=== PATIENT | female | born 1960 | race Caucasian/White ===

== ENCOUNTER 2018-10-19 17:19 | Emergency (ER) | payer BC ==
--- OUTSIDE RECORDS SUMMARY | 2018-10-19 17:24 | XMS REPORT | Continuity of Care Document ---
:1960 External Reference #:[id number] Author Name Betty Corona, RN [employer] Address [address] [place] [address] Care Team Providers Name Role Phone Kate Avlarez MD Care Team Information Payroll Professional Unavailable Payers Date Identification Numbers Payment Provider Subscriber Effective: 2016 Policy Number: [id number] [employer] Ppo David De La Vega Group Number: [id number] [address] [address] PayID: [id number] [place] [address] Onset: 10/14/2014 Policy Number: [id number] [facility] pre 08/26 Ngozi De La Vega Group Number: FAX [phone] [address] [address] PayID: [place] [address] PayID: [id number] WC/ Controverted Ngozi De La Vega Advance Directives Description No Information Available Problems Active Problems Provider Date Benign essential hypertension Onset: 10/07/2008 Pure hypercholesterolemia Onset: 10/07/2008 Generalized anxiety disorder Evette Hughes MD Onset: 09/30/2012 Low back pain Evette Hughes MD Onset: 10/02/2012 Family History Date Family Member(s) Observation Comments Father Good Health Father due to AAA () Onset: (age 74 Years) Father Aneurysm, Abdominal Mother Hypertension Mother Osteoporosis Mother Glaucoma Number of Siblings Siblings: 4 3 sisters and 1 brother Order Patient is the third of five children First Sister Thyroid Disease Second Sister Hypertension Paternal Grandfather due to Heart Disease () Paternal Grandmother due to Stroke () Maternal Grandfather due to Stroke () Maternal Grandmother due to Unsure Of () Cod-But Had Rheumtoid Athritis At A Young Age Social History Type Date Description Comments Sex Unknown Marital Status Marital Status 3 Children Pets several dogs Pets Cows Occupation Homemaker Occupation [employer] Tobacco Use Start: Unknown Current Cigarette Smoker 1 Pack Daily ETOH Use Rarely consumes liquor ETOH Use Maybe Once Every 6 Month A Mixed Drink Or Wine Cooler Recreational Drug Use Denies Drug Use Tobacco Use Start: Unknown Patient is a current smoker, smokes every day Smoking Status Reviewed: 09/12/18 Patient is a current smoker, smokes every day Exercise Type/Frequency Physical Life Style Tattoo/Piercing Pierced ears Seat Belt/Car Seat always uses seat belt Guns in Home Yes, Locked Up Allergies, Adverse Reactions, Alerts Description No Known Drug Allergies Medications Active Medications SIG Qnty Indications Ordering Date Provider Sulfamethoxazole/Trim one tab by mouth 14tabs J20.9 Betty Corona 2018 ethoprim DS twice a day for 7 C RN [employer] 800-160mg days Tablets Rosuvastatin Calcium 1 by mouth every 30tabs E78.2 Betty Corona 2017 day C RN [employer] 5mg Tablets Lotrisone apply to Feet 45gm B35.3 Betty Corona 01/16/2018 1-0.05% Cream twice a day C RN [employer] Meloxicam 1 by mouth twice a 60tabs G24.3 Betty Corona 12/24/2017 7.5mg Tablets day for 2-3weeks Nehemiah RN [employer] then as needed Meclizine HCL take 1- 2 tabs at 30tabs R42 Betty Corona 08/29/2017 25mg night if needed C RN [employer] Tablets for vertigo till sx are gone.(may take 1/2 in am if needed) Tizanidine HCL 1-2 tabs every 8 30tabs M54.5 Betty Corona 06/26/2017 2mg hours as needed C RN [employer] Tablets muscle cramps Nasal Decongestant 1-2 tabs every 4 24tabs J06.9 Betty Corona 2017 30mg hours as needed C RN [employer] Tablets for nasal congestion Proair HFA 2 p three times a 25.5gm J06.9 Betty Corona 05/11/2017 108(90Base) day as needed C RN [employer] mcg/Act Aerosol Sertraline HCL Take 1 Tablet By 90tabs F41.1 Betty Corona 01/25/2017 50mg Mouth Every Day BERONICA Cerna [employer] Tablets F33.0 Alprazolam take one tablet by 90tabs F41.0 Betty Corona, 10/16/2016 0.5mg Tablets mouth three times a RN [employer] day as needed for anxiety, maximum daily dose=3 F41.1 Atenolol-Chlorthalidone take 1/2 tablet 45tabs I10 Betty Corona 2013 50-25mg Tablets by mouth once BERONICA Cerna [employer] daily History Medications Amoxicillin/Clavulanate 1 by mouth every 14tabs J01.90 Antonio, 2018 - Potassium 12 hours Kate Huizar MD 08/20/2018 875-125mg Tablets Fluticasone Propionate 1 sprays in each 48gm J01.90 Antonio, 08/13/2018 - 50mcg/Act nostril twice Kate Huizar MD 08/23/2018 Suspension daily Atorvastatin Calcium 1 by mouth every 30tabs Cj, 03/13/2018 - 10mg Tablets day Betty Cerna RN 04/26/2018 [employer] Azithromycin 2 tabs day one 6tabs R05 Cj, 03/13/2018 - 250mg Tablets and 1 tab daily Betty Cerna RN 04/26/2018 till gone [employer] Cheratussin ac 5-10 milliliters 118ml R05 Cj, 03/13/2018 - 100-10mg/5ML Solution at bedtime, september Betty Cerna RN 04/26/2018 repeat x 1 after [employer] 4 hours if still needed Rosuvastatin Calcium 1 by mouth every 30tabs Cj, 01/30/2018 - 5mg Tablets day Betty Cerna RN 03/13/2018 [employer] Bupropion HCL One Tab bid 60tabs F33.0 Cj, 06/22/2017 - 75mg Tablets Betty Cerna RN 09/12/2018 [employer] Azithromycin ,2 tabs day one 6tabs J06.9 Cj, 05/11/2017 - 250mg Tablets and 1 tab daily Betty Cerna RN 06/22/2017 till gone [employer] Doxycycline Monohydrate 1 by mouth twice 42tabs Antonio, 03/12/2017 - 100mg Tablets a day x 21 d Kate Huizar MD 04/26/2017 Doxycycline Hyclate 2 tabs x one 2tabs Cj, 02/28/2017 - 100mg Tablets DR dose , september sub Betty Cerna RN 03/12/2017 any doxy that is [employer] covered Sertraline HCL 1 Tab AT hs 30tabs F41.1 Cj, 11/01/2016 - 25mg Tablets Betty Cerna RN 04/24/2017 [employer] Clonazepam One Tab bid 60tabs F41.1 Cj, 11/01/2016 - 0.5mg Tablets Betty Cerna RN 04/26/2017 [employer] Azithromycin 2 tabs day one 6tabs Antonio, 10/27/2016 - 250mg Tablets and 1 tab daily Kate Huizar MD 11/30/2016 till gone Ventolin HFA 2 puffs every 4 16gm J10.89 Antonio, 10/19/2016 - 108(90Base) mcg/Act hours as needed Kate Huizar MD 11/30/2016 Aerosol for shortness of breath Mucinex 1 tab per oral 30tabs J10.89 Antonio, 10/19/2016 - 600mg Tablets ER 12HR twice a day Kate Huizar MD 11/30/2016 Doxycycline Hyclate 1 by mouth twice 20tabs J01.00 Antonio, 10/16/2016 - 100mg Tablets a day x 10 d Kate Huizar MD 10/27/2016 Buspirone HCL take 1/2-1 60tabs Cj, 08/22/2016 - 10mg Tablets tablet by mouth Betty Cerna RN 04/26/2017 twice a day [employer] Lotrisone apply to Feet 45gm B35.3 Cj, 04/14/2016 - 1-0.05% Cream twice a day Betty Cerna RN 07/13/2016 [employer] Tramadol HCL take 1tablet by 20tabs M54.2 Cj, 12/10/2015 - 50mg Tablets mouth every 6 Betty Cerna RN 03/01/2016 hours with food [employer] as needed for pain, mdd 4 Hydroxyzine HCL take one to 60tabs F41.1 Cj, 06/30/2015 - 10mg Tablets three tablets by Betty Cerna RN 11/01/2016 mouth every 6 [employer] hours as needed for anxiety may take up to 5 tablets by mouth at bedtime for sleep F41.9 Tizanidine HCL 1-2 tabs every 8 30tabs M54.5 Betty Corona 06/30/2015 - 2mg hours as needed BERONICA Cerna [facility] 04/24/2017 Tablets muscle cramps Cervical Collar to use for M54.2 Betty Corona 06/30/2015 - severe neck pain BERONICA Cerna [facility] 08/27/2015 X 1-2 hrs only Sertraline HCL 1/2 tab daily 45tabs F41.1 Betty Corona 04/08/2015 - 100mg BERONICA Cerna [facility] 01/25/2017 Tablets F33.0 Zoloft one tab at 30tabs [place], 03/25/2015 - 50mg Tablets bedtime. brand Betty Cerna RN 06/30/2015 name medically [employer] necessary( gi sx with generic) Viibryd One Daily In Am F33.0 Cj, 03/19/2015 - 10mg Tablets Betty Cerna RN 04/08/2015 [employer] Meclizine HCL take 1- 2 tabs at 30tabs H81.311 Cj, 03/03/2015 - 25mg night if needed Betty Cerna RN 11/30/2016 Tablets for vertigo till [employer] sx are gone. Cheratussin ac 1-2 teaspoon at 120units J20.9 Cj, 03/03/2015 - bedtime, september Betty Cerna RN 04/08/2015 100-10mg/5ML Solution repeat x 1 after 4 [employer] hours if still needed Azithromycin 2 tabs day one and 6tabs J20.9 Cj, 03/03/2015 - 250mg 1 tab daily till Betty Cerna RN 04/08/2015 Tablets gone [employer] Out Of Work For out of work till F41.9 [place], 02/19/2015 - Medical Reasons further notice. We Betty Cerna RN 08/27/2015 will continue to [employer] see monthly and she is seeing conselor weekly. Sertraline HCL 1/2 tab Daily( 30tabs F41.9 Cj, 02/03/2015 - 50mg With 1/2 Of 100MG) Betty Cerna RN 06/30/2015 Tablets [employer] Citalopram 1/2 by mouth every 90tabs 300.00 Cj 01/21/2015 - Hydrobromide day Betty Cerna RN 02/03/2015 20mg Tablets [employer] Out Of Work For 300.00 Cj 01/21/2015 - Medical Reasons Betty Cerna RN 02/19/2015 [employer] Return To Work may return to full 786.50 Cj 12/18/2014 - duty on 12/24/14 Betty Cerna RN 01/21/2015 [employer] Celebrex 1 by mouth every 90caps 726.31 Cj 12/18/2014 - 200mg Capsules day Betty Cerna RN 01/21/2015 [employer] Prozac one tab daily by 30caps 300.00 Cj 11/24/2014 - 10mg Capsules mouth for anxiety Betty Cerna RN 12/18/2014 [employer] Out Of Work For One 786.50 Cj 11/18/2014 - Month Betty Cerna RN 12/18/2014 [employer] Gabapentin take 1 capsules by 90caps 786.50 Cj 11/18/2014 - 100mg Capsules mouth at bedtime, Betty Cerna RN 12/18/2014 may increase [employer] every3- 4 days up to 3 tabs at bedtime. Hydrocodone-Acetaminop 1 tab by mouth 30tabs Cj 11/12/2014 - hen every 6 hours if Betty Cerna RN 01/21/2015 5-325mg Tablets needed pain [employer] Out Of Work For 2 786.50 Cj 10/28/2014 - Weeks. Betty Cerna RN 11/18/2014 [employer] No Work For One Week due to rib injury. 786.50 Cj 10/21/2014 - may return 10/29 Betty Cerna RN 10/28/2014 with limited [employer] lifting and bending for one week. Lidoderm apply patch daily 1Box 786.50 Cj 10/21/2014 - 5% Patches as directed.leave Betty Cerna RN 12/18/2014 on for 12 [employer] hours/day only. may cut to fit tender area. Tramadol HCL take 1 tablets 20tabs 786.50 Cj, 10/21/2014 - 50mg Tablets every 4-6 hours Betty Cerna RN 10/28/2014 as needed for [employer] pain. Amoxicillin 1 by mouth three 30tabs 466.0 Cj, 09/30/2014 - 500mg Tablets times a day Betty Cerna RN 10/21/2014 [employer] Anoro Ellipta one inhalation 1units J20.9 Cj, 09/30/2014 - once daily Betty Cerna RN 08/27/2015 62.5-25mcg/Inh Aerosol [employer] Ventolin HFA 2 puffs three 1units J20.9 Cj, 09/30/2014 - 108(90Base) times a day as Betty Cerna RN 07/13/2016 mcg/Act Aerosol needed [employer] Azithromycin 2 tabs day one and 6tabs 465.9 Cj, 09/09/2014 - 250mg 1 tab daily till Betty Cerna RN 09/30/2014 Tablets gone [employer] Cephalexin 1 three times a 21tabs Cj 08/20/2014 - 500mg Tablets day for 7 days Betty Cerna RN 09/09/2014 [employer] Elocon apply twice a day 1units 782.1 Cj, 08/19/2014 - 0.1% Cream as needed Betty Cerna RN 07/13/2016 [employer] Robitussin ac 10 milliliters 120ml 466.0 [facility], 06/02/2014 - four times a day Kate Huizar MD 08/19/2014 as needed Azithromycin 2 tabs day one and 1Pack 466.0 [facility], 06/02/2014 - 250mg 1 tab daily till Kate Huizar MD 08/19/[address] Work Note pl excuse from 466.0 Cj, 06/02/2014 - work for the rest Betty Cerna RN 09/16/2014 of week. [employer] Gabapentin take 1 capsules by 90caps 724.2 Cj, 04/15/2014 - 100mg Capsules mouth at bedtime, Betty Cerna RN 08/19/2014 may increase [employer] every7 days up to 3 tabs at bedtime. Meloxicam take 1 tablet by 30tabs 724.2 Cj 04/15/2014 - 7.5mg Tablets mouth every day Betty Cerna RN 11/18/2014 for pain [employer] Prozac one tab daily by 30caps 300.00 Cj, 04/15/2014 - 10mg Capsules mouth for anxiety Betty Cerna RN 11/18/2014 [employer] Cyclobenzaprine HCL 1 every night at 90tabs 724.2 Cj, 11/06/2013 - 10mg bedtime and 1/2 Betty Cerna RN 06/30/2015 Tablets tab every 8 hours [employer] as needed muscle spasm. Celebrex 1 po qd with food Samples 846.8 Jona, 10/16/2012 - 200mg Capsules MD Jelani 03/24/2013 724.2 Work Note Patient with 724.2 Jona, 10/16/2012 - continued low back MD Jelani 03/24/2013 pain. Continue excuse from work long termuntil evaluated by pain specialist Celebrex PO bid 30caps 846.8 Evette Hughes 09/30/2012 - 100mg Capsules 10/16/2012 Prozac one po qd 90caps 300.00 Jona, 05/31/2012 - 20mg Capsules MD Jelani 04/15/2014 Prozac 1 po qd x 1 week, 60caps 300.00 Betty Corona 01/31/2012 - 10mg Capsules then 2 po qd BERONICA Cerna [employer] 05/31/2012 Meclizine HCL 1/2 -1 po tid prn 20tabs 388.70 [facility], 01/10/2012 - 25mg dizziness, vertigo. MD Jelani 03/24/2013 Tablets take 1 po every night before sleep Prozac 1 po qd x 1 week, 60caps 300.00 Jona, 01/10/2012 - 10mg Capsules then 2 po qd MD Jelani 01/31/2012 Augmentin 1 po q12h with food 20tabs Jona, 12/25/2011 - 875-125mg MD Jelani 01/10/2012 Tablets Acetaminophen/Codeine 1-2 po qid prn pain 40tabs [facility], 12/25/2011 - #3 MD Jelani 01/10/2012 300-30mg Tablets Cyclobenzaprine HCL 1 qhs 30tabs 723.1 [facility], 09/22/2011 - 10mg MD Jelani 01/10/2012 Tablets Physical Therapy dx: back pain 724.5 Jona, 09/22/2011 - evaluate and MD Jelani 11/06/2011 rx biw-tiw to include rom and strengthening Augmentin 1 po q12h with food 20tabs 461.8 Jona, 03/06/2011 - 875-125mg MD Jelani 06/16/2011 Tablets Paroxetine HCL ER 1 po qhs 30tabs 300.00 Jona, 09/28/2010 - 25mg MD Jelani 12/21/2010 Tablets ER 24HR Citalopram 1 po qd 30tabs 300.00 Jona, 06/08/2010 - Hydrobromide MD Jelani 09/28/2010 20mg Tablets [facility]ith[facility] 2 tabs day one and 6tabs [facility] 1 tab daily till Kate Huizar MD 06/08/2010 Tablets gone Ventolin HFA use tid as needed 1units 465.9 Betty Corona 04/28/2010 - 108(90Base) C, RN [facility] 06/08/2010 mcg/ac Aerosol Lorazepam 1/2-1 po tid prn 60tabs 327.01 Jona, 04/01/2010 - 0.5mg Tablets nerves or sleep MD Jelani 06/08/2010 Prednisone 4 tabs for3 days,3 30tabs 782.1 Betty Corona 01/10/2010 - 10mg Tablets tabs for 3 days, 2 C, RN [facility] 04/01/2010 tabs for 3 days 1 tab for 3 days Sertraline HCL 1/2 po qd x 1 week 30tabs 724.1 Jona, 10/27/2009 - 50mg then 1 po qd MD Jelani 01/10/2010 Tablets Xanax 1/2-1 three times a 90tabs F41.0 Betty Corona 10/27/2009 - 0.5mg Tablets day as needed C RN [facility] 10/16/2016 anxiety Lidoderm Apply topically qd 15unit 724.1 [facility], 10/08/2009 - 5% Patches as directed (on in s MD Jelani 01/10/2010 am and off at hs) Cymbalta 1 po qd [facility] - 60mg Caps DR Jelani MD 10/27/2009 Part Chantix Continuing 1 po bid 60tabs Jona, 08/06/2009 - Month Fernando Palomares MD 01/10/2010 1mg Tablets Chantix Starter Pack As directed 1units Jona, 08/06/2009 - MD Jelani 01/10/2010 #1Pack Wellbutrin SR 1 po bid 60tabs 305.1 Jona, 08/02/2009 - 150mg MD Jelani 01/10/2010 Tablets ER 12HR No Work all this week september 780.79 Betty Corona 03/10/2009 - D/T Illness return next week to Nehemiah RN [facility] 07/05/2009 regular duty Zithromax Z-Fernando As directed 1Pak 466.0 Jona, 03/08/2009 - 250mg MD Jelani 08/02/2009 Tablets 465.9 Robitussin ac 10 ml qid prn 120ml 466.0 Antonio, 03/08/2009 - Kate Huizar MD 07/05/2009 Omnicef 1 po bid x 10 20caps Ronal, 03/05/2009 - 300mg Capsules days Mashelle, N.P. 03/08/2009 Medrol Dosepak as directeted 1PCisco Elam 01/07/2009 - 4mg Tablets MD Katelyn 03/05/2009 Clobetasol Propionate apply bid prn, 60gm Cisco Buck 01/07/2009 - 0.05% 30gr MD Katelyn 03/05/2009 Cream Prednisone 4tabs qam x 2 20tabs 692.6 Antonio 12/28/2008 - 10mg Tablets days then 3 po Kate Huizar MD 01/07/2009 qam x 2d then 2 po qam x 2d then 1 po qam x 2 d Cyclobenzaprine HCL 1 qhs and 1/2 tab 30tabs 724.2 Betty Corona 2008 - 10mg q 8 hrs prn Nehemiah RN [employer] 01/07/2009 Tablets muscle spasm. No Work 12/21/08 for 724.2 Betty Corona 12/17/2008 - D/T Injury entire week. May C, RN [employer] 12/28/2008 return to fullduty next scheduled week. Atenolol/Chlorthalidone take 1/2 tablet 45tabs 401.1 [facility], 08/12/2008 - by mouth once MD Jelani 03/30/2014 50-25mg Tablets daily Chantix Starter Pack as directed 1units 305.1 [facility], 07/24/2008 - #1Pjerry Palomares MD 01/07/2009 Immunizations CPT Code Status Date Vaccine Lot # [id number] Given 07/12/2018 Influenza Vac, Quadrivalent, Split, 0.5mL Dosage, [id number] Im Use [id number] Given 04/26/2017 Influenza Vac, Quadrivalent, Split, 0.5mL Dosage, [id number] Im Use [id number] Given 05/21/2012 Tdap (Adacel) Ages 7 And Above Only [id number] Refused 04/14/2016 Influenza Vac, Quadrivalent, Split, 0.5mL Dosage, Im Use Vital Signs Date Vital Result Comment 09/12/2018 9:21am Body Temperature 97.8 F Weight 149.00 lb Heart Rate 75 /min BP Systolic 137 mmHg BP Diastolic 83 mmHg Height 62 inches 5'2" BMI (Body Mass Index) 27.2 kg/m2 08/13/2018 9:45am Body Temperature 98.4 F Weight 149.12 lb Heart Rate 74 /min BP Systolic 165 mmHg BP Diastolic 88 mmHg Height 62 inches 5'2" BMI (Body Mass Index) 27.3 kg/m2 07/12/2018 8:07am Weight 150.25 lb Heart Rate 71 /min BP Systolic 138 mmHg BP Diastolic 86 mmHg Height 62 inches 5'2" BMI (Body Mass Index) 27.5 kg/m2 04/26/2018 8:02am Weight 147.50 lb Heart Rate 69 /min BP Systolic 129 mmHg BP Diastolic 79 mmHg Height 62 inches 5'2" BMI (Body Mass Index) 27.0 kg/m2 03/13/2018 7:58am Body Temperature 95.6 F Weight 147.00 lb Heart Rate 76 /min BP Systolic 110 mmHg BP Diastolic 76 mmHg Height 62 inches 5'2" BMI (Body Mass Index) 26.9 kg/m2 01/16/2018 8:05am Weight 148.12 lb Heart Rate 60 /min BP Systolic 148 mmHg BP Diastolic 82 mmHg Height 62 inches 5'2" BMI (Body Mass Index) 27.1 kg/m2 12/24/2017 3:21pm Weight 149.50 lb Heart Rate 72 /min BP Systolic 141 mmHg BP Diastolic 83 mmHg Height 62 inches 5'2" BMI (Body Mass Index) 27.3 kg/m2 10/11/2017 10:15am Weight 150.50 lb Heart Rate 64 /min BP Systolic 145 mmHg BP Diastolic 78 mmHg Height 62 inches 5'2" BMI (Body Mass Index) 27.5 kg/m2 08/29/2017 10:24am Heart Rate 66 /min BP Systolic 148 mmHg BP Diastolic 82 mmHg Height 62 inches 5'2" 06/22/2017 8:43am Weight 148.00 lb Heart Rate 66 /min BP Systolic 131 mmHg BP Diastolic 79 mmHg Height 62 inches 5'2" BMI (Body Mass Index) 27.1 kg/m2 05/11/2017 8:31am Weight 148.31 lb Heart Rate 61 /min BP Systolic 132 mmHg BP Diastolic 86 mmHg Height 62 inches 5'2" BMI (Body Mass Index) 27.1 kg/m2 04/26/2017 1:21pm Weight 146.00 lb Heart Rate 64 /min BP Systolic 131 mmHg BP Diastolic 77 mmHg Height 62 inches 5'2" BMI (Body Mass Index) 26.7 kg/m2 Right Visual Acuity Distance 20/40 Both 20/25 Left Visual Acuity Distance 20/40 02/28/2017 3:22pm Heart Rate 67 /min BP Systolic 127 mmHg BP Diastolic 71 mmHg Height 62 inches 5'2" 01/25/2017 1:11pm Weight 145.38 lb Heart Rate 64 /min BP Systolic 137 mmHg BP Diastolic 74 mmHg Height 62 inches 5'2" BMI (Body Mass Index) 26.6 kg/m2 11/30/2016 11:34am Weight 142.00 lb Heart Rate 67 /min BP Systolic 140 mmHg BP Diastolic 76 mmHg Height 62 inches 5'2" BMI (Body Mass Index) 26.0 kg/m2 11/01/2016 8:37am Weight 142.25 lb Heart Rate 64 /min BP Systolic 132 mmHg BP Diastolic 87 mmHg Height 62 inches 5'2" BMI (Body Mass Index) 26.0 kg/m2 10/19/2016 10:27am Body Temperature 96.1 F Weight 143.12 lb Heart Rate 87 /min BP Systolic 104 mmHg BP Diastolic 69 mmHg 10/16/2016 1:45pm Body Temperature 96.8 F Weight 145.25 lb Heart Rate 75 /min BP Systolic 127 mmHg BP Diastolic 79 mmHg 07/13/2016 8:06am Weight 148.00 lb Heart Rate 72 /min BP Systolic 120 mmHg BP Diastolic 74 mmHg 06/22/2016 9:00am Body Temperature 97.3 F Weight 146.25 lb Heart Rate 67 /min BP Systolic 137 mmHg BP Diastolic 81 mmHg Height 62 inches 5'2" BMI (Body Mass Index) 26.7 kg/m2 04/14/2016 10:28am Weight 145.50 lb Heart Rate 59 /min BP Systolic 132 mmHg BP Diastolic 79 mmHg Height 62 inches 5'2" BMI (Body Mass Index) 26.6 kg/m2 03/01/2016 1:27pm Weight 143.38 lb Heart Rate 63 /min BP Systolic 122 mmHg BP Diastolic 80 mmHg Height 62 inches 5'2" BMI (Body Mass Index) 26.2 kg/m2 12/10/2015 10:09am Weight 143.25 lb Heart Rate 57 /min BP Systolic 120 mmHg BP Diastolic 80 mmHg Height 62 inches 5'2" BMI (Body Mass Index) 26.2 kg/m2 11/25/2015 1:32pm Weight 143.12 lb Heart Rate 66 /min BP Systolic 126 mmHg BP Diastolic 78 mmHg Height 62 inches 5'2" BMI (Body Mass Index) 26.2 kg/m2 08/27/2015 8:49am Weight 143.50 lb Heart Rate 70 /min BP Systolic 122 mmHg BP Diastolic 81 mmHg Height 62 inches 5'2" BMI (Body Mass Index) 26.2 kg/m2 06/30/2015 1:04pm Weight 142.12 lb Heart Rate 75 /min BP Systolic 119 mmHg BP Diastolic 75 mmHg Height 62 inches 5'2" BMI (Body Mass Index) 26.0 kg/m2 05/07/2015 9:52am Weight 143.06 lb Heart Rate 61 /min BP Systolic 138 mmHg BP Diastolic 85 mmHg Height 62 inches 5'2" BMI (Body Mass Index) 26.2 kg/m2 04/08/2015 9:45am Weight 140.25 lb Heart Rate 85 /min BP Systolic 128 mmHg BP Diastolic 82 mmHg Height 62 inches 5'2" BMI (Body Mass Index) 25.6 kg/m2 03/19/2015 8:28am Weight 142.25 lb Heart Rate 62 /min BP Systolic 122 mmHg BP Diastolic 86 mmHg Height 62 inches 5'2" BMI (Body Mass Index) 26.0 kg/m2 03/03/2015 3:43pm Body Temperature 97.7 F Weight 143.00 lb Heart Rate 80 /min BP Systolic 145 mmHg BP Diastolic 81 mmHg Height 62 inches 5'2" BMI (Body Mass Index) 26.2 kg/m2 02/19/2015 12:56pm Weight 143.25 lb Heart Rate 68 /min BP Systolic 131 mmHg BP Diastolic 85 mmHg Height 62 inches 5'2" BMI (Body Mass Index) 26.2 kg/m2 12/18/2014 8:25am Weight 145.38 lb Heart Rate 68 /min BP Systolic 118 mmHg BP Diastolic 84 mmHg Height 62 inches 5'2" BMI (Body Mass Index) 26.6 kg/m2 11/18/2014 1:06pm Weight 145.12 lb Heart Rate 65 /min BP Systolic 99 mmHg BP Diastolic 74 mmHg Height 62 inches 5'2" BMI (Body Mass Index) 26.5 kg/m2 10/21/2014 3:28pm Weight 144.25 lb Heart Rate 66 /min BP Systolic 142 mmHg BP Diastolic 74 mmHg Height 62 inches 5'2" BMI (Body Mass Index) 26.4 kg/m2 09/30/2014 2:01pm Weight 145.00 lb Heart Rate 73 /min BP Systolic 129 mmHg BP Diastolic 80 mmHg Height 62 inches 5'2" BMI (Body Mass Index) 26.5 kg/m2 09/09/2014 2:48pm Body Temperature 97.9 F Weight 146.00 lb Heart Rate 68 /min BP Systolic 123 mmHg BP Diastolic 76 mmHg Height 62 inches 5'2" BMI (Body Mass Index) 26.7 kg/m2 08/19/2014 1:03pm Weight 147.00 lb Heart Rate 70 /min BP Systolic 120 mmHg BP Diastolic 76 mmHg Height 62 inches 5'2" BMI (Body Mass Index) 26.9 kg/m2 06/02/2014 11:00am Body Temperature 97.0 F Weight 146.00 lb Heart Rate 60 /min BP Systolic 120 mmHg BP Diastolic 68 mmHg Height 62 inches 5'2" BMI (Body Mass Index) 26.7 kg/m2 04/15/2014 12:52pm Weight 146.00 lb Heart Rate 67 /min BP Systolic 119 mmHg BP Diastolic 76 mmHg Height 62 inches 5'2" BMI (Body Mass Index) 26.7 kg/m2 11/06/2013 9:09am Weight 145.00 lb Heart Rate 76 /min BP Systolic 114 mmHg BP Diastolic 74 mmHg Height 62 inches 5'2" BMI (Body Mass Index) 26.5 kg/m2 03/24/2013 8:04am Weight 142.50 lb Heart Rate 65 /min BP Systolic 122 mmHg BP Diastolic 74 mmHg 10/16/2012 5:36pm Weight 132.00 lb Heart Rate 63 /min BP Systolic 115 mmHg BP Diastolic 76 mmHg 09/30/2012 10:03am Weight 131.00 lb Heart Rate 64 /min BP Systolic 136 mmHg BP Diastolic 80 mmHg 09/23/2012 8:03am Weight 131.00 lb Heart Rate 64 /min BP Systolic 122 mmHg BP Diastolic 69 mmHg 05/31/2012 9:21am Weight 128.00 lb Heart Rate 64 /min BP Systolic 108 mmHg BP Diastolic 60 mmHg Height 62 inches 5'2" BMI (Body Mass Index) 23.4 kg/m2 04/03/2012 2:14pm Weight 126.00 lb Heart Rate 75 /min BP Systolic 119 mmHg BP Diastolic 69 mmHg 01/31/2012 1:06pm Weight 118.00 lb Heart Rate 67 /min BP Systolic 145 mmHg BP Diastolic 79 mmHg Height 62 inches 5'2" BMI (Body Mass Index) 21.6 kg/m2 01/10/2012 1:58pm Weight 118.00 lb Heart Rate 68 /min BP Systolic 166 mmHg BP Diastolic 81 mmHg 09/22/2011 7:57am Weight 122.00 lb Heart Rate 70 /min BP Systolic 126 mmHg BP Diastolic 78 mmHg 06/16/2011 2:02pm Weight 123.00 lb Heart Rate 65 /min BP Systolic 126 mmHg BP Diastolic 74 mmHg 03/06/2011 11:58am Body Temperature 97.6 F Weight 118.00 lb Heart Rate 85 /min BP Systolic 135 mmHg BP Diastolic 85 mmHg 12/21/2010 7:06pm Weight 119.00 lb Heart Rate 69 /min BP Systolic 133 mmHg BP Diastolic 79 mmHg 09/28/2010 6:30pm Weight 122.00 lb Heart Rate 65 /min BP Systolic 158 mmHg BP Diastolic 76 mmHg O2 % BldC Oximetry 99 % 100 With Ambulation 06/08/2010 7:11pm Weight 120.00 lb Heart Rate 67 /min BP Systolic 126 mmHg BP Diastolic 77 mmHg 04/28/2010 10:36am Body Temperature 97.2 F Weight 122.00 lb Heart Rate 68 /min BP Systolic 135 mmHg BP Diastolic 82 mmHg 04/01/2010 9:19am Weight 124.00 lb Heart Rate 65 /min BP Systolic 143 mmHg BP Diastolic 80 mmHg 01/10/2010 1:29pm Weight 122.00 lb Heart Rate 88 /min BP Systolic 122 mmHg BP Diastolic 70 mmHg 11/22/2009 12:03pm Weight 125.00 lb Heart Rate 53 /min BP Systolic 147 mmHg BP Diastolic 76 mmHg 10/08/2009 8:50am Weight 126.00 lb Heart Rate 78 /min BP Systolic 152 mmHg BP Diastolic 88 mmHg 08/02/2009 1:58pm Weight 126.00 lb Heart Rate 72 /min BP Systolic 141 mmHg BP Diastolic 83 mmHg Height 64.5 inches 5'4.50" BMI (Body Mass Index) 21.3 kg/m2 07/05/2009 11:41am Body Temperature 98.1 F Weight 128.00 lb Heart Rate 61 /min BP Systolic 138 mmHg BP Diastolic 79 mmHg 03/10/2009 8:16am Weight 125.00 lb Heart Rate 60 /min BP Systolic 112 mmHg BP Diastolic 70 mmHg Respiratory Rate 16 /min 03/08/2009 1:59pm Body Temperature 97.1 F Weight 125.00 lb Heart Rate 60 /min BP Systolic 130 mmHg BP Diastolic 70 mmHg 03/05/2009 10:14am Body Temperature 98.7 F Weight 126.00 lb BP Systolic 126 mmHg BP Diastolic 70 mmHg 01/07/2009 2:09pm Body Temperature 98.4 F Weight 127.00 lb Heart Rate 63 /min BP Systolic 120 mmHg BP Diastolic 74 mmHg 12/28/2008 3:12pm Weight 127.00 lb Heart Rate 68 /min BP Systolic 118 mmHg BP Diastolic 68 mmHg 12/17/2008 11:52am Weight 121.00 lb Heart Rate 70 /min BP Systolic 126 mmHg BP Diastolic 92 mmHg 10/07/2008 9:58am Weight 131.00 lb Heart Rate 62 /min BP Systolic 138 mmHg BP Diastolic 82 mmHg Height 63.5 inches 5'3.50" BMI (Body Mass Index) 22.8 kg/m2 09/15/2008 8:14am Weight 132.00 lb Heart Rate 66 /min BP Systolic 137 mmHg BP Diastolic 94 mmHg Respiratory Rate 20 /min 08/12/2008 12:12pm Weight 135.00 lb Heart Rate 90 /min BP Systolic 144 mmHg BP Diastolic 92 mmHg 07/24/2008 1:46pm Weight 134.00 lb Heart Rate 75 /min BP Systolic 158 mmHg BP Diastolic 86 mmHg Results Test Date Facility Test Result H/L Range Note Laboratory test 08/13/2018 Done In [facility] 1 Rapid Flu NEGATIVE finding Test (In House) Comprehensive Met 01/16/2018 [facility] Sodium 138 mmol/L 135-146 1 [facility] Potassium 5.6 mmol/L High 3.5-5.2 Chloride# 97 mmol/L 97-110 2 Carbon Dioxide 27 mmol/L 24-34 Glucose 86 mg/dL 70-105 BUN 11 mg/dL 6-26 Creatinine 0.9 mg/dL 0.5-1.4 Calcium 10.3 mg/dL High 8.5-10.2 Total Protein 7.1 g/dL 6.0-8.0 Albumin 4.5 g/dL 3.6-4.9 Globulin 2.6 g/dL 2.0-3.5 A/G Ratio 1.7 Ratio 1.0-2.2 Total Bilirubin 0.5 mg/dL 0.1-1.3 Alkaline Phosphatase 74 U/L 24-140 Alt 28 U/L 3-42 Ast 26 U/L 8-42 Manasa Egfr >60 >60 3 Non Manasa Egfr >60 >60 4 Anion Gap 14 mmol/L 5-15 5 Laboratory test finding 01/16/2018 [facility] TSH 0.96 uIU/mL 0.35-4.94 Lipid 01/16/2018 [facility] Cholesterol 269 mg/dL High 50-199 Triglycerides 119 mg/dL 30-200 HDL 63 mg/dL 35-85 6 Chol/ HDL Ratio 4.3 ratio 3.7-5.6 VLDL 24 mg/dL 2-29 LDL (Calc) 183 mg/dL High 20-99 7 Laboratory test 04/26/2017 [facility] (Fecal Occult <pending> finding Blood)-[facility] Laboratory test 04/26/2017 [facility] Hepatitis C Virus NON REACTIVE Non Reactive 8 finding Antibody S/CORatio(Sanjay Lyme Igm/Igg AB 04/26/2017 [facility] Lyme Igm/Igg AB @ NEGATIVE (Neg) 9 -RL CBC With Auto 02/28/2017 [facility] WBC 6.1 K/uL 4.1-11.0 Diff RBC 5.29 M/uL 4.00-5.40 Hemoglobin 16.6 gm/dL High 12.0-16.0 Hematocrit 48.0 % High 36.0-47.0 MCV 90.7 fL 80.0-97.0 MCH 31.4 pg 27.0-32.0 MCHC 34.6 g/dL 32.0-36.0 RDW 13.9 % 11.5-14.5 PLT Count 234 K/ul 140-400 MPV 8.2 FL 7.1-10.7 Neutrophil 56.0 % 35.0-75.0 Lymphocyte 35.2 % 16.0-52.0 Monocyte 6.5 % 2.0-10.0 Eosinophil 1.8 % 0.0-5.0 Basophil 0.5 % 0.0-4.0 Abs Neutrophils 3.4 K/uL 2.1-8.0 Abs Lymphocytes 2.1 K/uL 0.8-5.5 Abs Monocytes 0.4 K/uL 0.1-1.0 Abs Eosinophils 0.1 K/uL 0.0-0.5 Abs Basophils 0.0 K/uL 0.0-0.3 Lyme Igm/Igg AB -RL 02/28/2017 [facility] Lyme Igm/Igg AB @ NEGATIVE (Neg) 10 Lipid 07/13/2016 [facility] Cholesterol 275 mg/dL High 50-199 Triglycerides 133 mg/dL 30-200 HDL 69 mg/dL 35-85 11 Chol/ HDL Ratio 4.0 ratio 3.7-5.6 VLDL 27 mg/dL 2-29 LDL (Calc) 179 mg/dL High 20-99 12 Laboratory test finding 07/13/2016 [facility] TSH 0.92 uIU/mL 0.35-4.94 CBC With Auto Diff 07/13/2016 [facility] WBC 9.2 K/uL 4.1-11.0 RBC 5.68 M/uL High 4.00-5.40 Hemoglobin 17.6 gm/dL High 12.0-16.0 Hematocrit 52.4 % High 36.0-47.0 MCV 92.2 fL 80.0-97.0 MCH 31.0 pg 27.0-32.0 MCHC 33.6 g/dL 32.0-36.0 RDW 14.2 % 11.5-14.5 PLT Count 214 K/ul 140-400 Neutrophil 78.4 % High 35.0-75.0 Lymphocyte 15.7 % Low 16.0-52.0 Monocyte 4.0 % 2.0-10.0 Eosinophil 0.9 % 0.0-5.0 Basophil 1.0 % 0.0-4.0 Abs Neutrophils 7.2 K/uL 2.1-8.0 Abs Lymphocytes 1.4 K/uL 0.8-5.5 Abs Monocytes 0.4 K/uL 0.1-1.0 Abs Eosinophils 0.1 K/uL 0.0-0.5 Abs Basophils 0.1 K/uL 0.0-0.3 Comprehensive Metabolic (CMP) 07/13/2016 [facility] Sodium 135 mmol/L 134- 142 Potassium 5.3 No visible h <SEE NOTE> mmol/L High 3.5-5.2 13 Chloride 97 mmol/L 97-109 Carbon Dioxide 29 mmol/L 24-34 Glucose 89 mg/dL 70-105 BUN 12 mg/dL 6-26 Creatinine 0.9 mg/dL 0.5-1.4 Calcium 10.2 mg/dL 8.5-10.2 Total Protein 7.4 g/dL 6.0-8.0 Albumin 4.6 g/dL 3.6-4.9 Globulin 2.8 g/dL 2.0-3.5 A/G Ratio 1.6 Ratio 1.0-2.2 Total Bilirubin 0.6 mg/dL 0.1-1.3 Alkaline Phosphatase 70 U/L 24-140 Alt 21 U/L 3-42 Ast 22 U/L 8-42 Anion Gap 14 mmol/L 6-14 Manasa Egfr >60 >60 14 Non Manasa Egfr >60 >60 15 Laboratory test 07/13/2016 [facility] Vit D,25 24 ng/mL Low 31-100 finding Hydroxy Xray 07/03/2016 [facility] mri of the LEFT [address] [place] [address] breast [phone] BUN/Creat/GFR Panel 06/27/2016 [facility] BUN 11 mg/dL 6-26 BUN/CR 13 ratio 12-20 Creatinine 0.9 mg/dL 0.5-1.4 Manasa Egfr >60 >60 16 Non Manasa Egfr >60 >60 17 Comprehensive Metabolic (CMP) 04/08/2015 [facility] Sodium 135 mmol/L 134- 142 Potassium 3.7 mmol/L 3.5-5.2 Chloride 95 Consistent wi <SEE NOTE> mmol/L Low 97-109 18 Carbon Dioxide 29 mmol/L 24-34 Glucose 83 mg/dL 70-105 BUN 13 mg/dL 6-26 Creatinine 0.8 mg/dL 0.5-1.4 Calcium 9.9 mg/dL 8.5-10.2 Total Protein 7.4 g/dL 6.0-8.0 Albumin 4.5 g/dL 3.6-4.9 Globulin 2.9 g/dL 2.0-3.5 A/G Ratio 1.6 Ratio 1.0-2.2 Total Bilirubin 0.6 mg/dL 0.1-1.3 Alkaline Phosphatase 73 U/L 24-140 Alt 18 U/L 3-42 Ast 20 U/L 8-42 Anion Gap 15 mmol/L High 6-14 Manasa Egfr >60 >60 19 Non Manasa Egfr >60 >60 20 CBC With Auto Diff 04/08/2015 [facility] WBC 7.8 K/uL 4.1-11.0 RBC 5.48 M/uL High 4.00-5.40 Hemoglobin 16.9 gm/dL High 12.0-16.0 Hematocrit 50.6 % High 36.0-47.0 MCV 92.4 fL 80.0-97.0 MCH 30.8 pg 27.0-32.0 MCHC 33.3 g/dL 32.0-36.0 RDW 14.0 % 11.5-14.5 PLT Count 224 K/ul 140-400 Neutrophil 75.7 % High 35.0-75.0 Lymphocyte 18.1 % 16.0-52.0 Monocyte 4.7 % 2.0-10.0 Eosinophil 0.6 % 0.0-5.0 Basophil 0.9 % 0.0-4.0 Abs Neutrophils 5.9 K/uL 2.1-8.0 Abs Lymphocytes 1.4 K/uL 0.8-5.5 Abmon 0.4 K/uL 0.1-1.0 Abs Eosinophils 0.0 K/uL 0.0-0.5 Abs Basophils 0.1 K/uL 0.0-0.3 Laboratory test 04/08/2015 [facility] Ferritin 190.0 ng/ml 11.0-306.0 finding Celiac Disease 04/08/2015 [facility] Gliadin Peptide 4 [arb'U] (<20) 21 Panel-RL Iga Gliadin Peptide Igg 2 [arb'U] (<20) 22 Iga @ 155 mg/dL (71-374) Transglutaminase Iga 4 [arb'U] (<20) 23 Transglutaminase Igg 2 [arb'U] (<20) 24 Lipid 02/05/2015 [facility] Cholesterol 239 mg/dL High 50-199 Triglycerides 139 mg/dL 30-200 HDL 62 mg/dL 35-85 25 Chol/ HDL Ratio 3.9 ratio 3.7-5.6 VLDL 28 mg/dL 2-29 LDL (Calc) 149 mg/dL High 20-99 26 Comprehensive Metabolic (CMP) 02/05/2015 [facility] Sodium 134 mmol/L 134- 142 Potassium 5.4 No visible h <SEE NOTE> mmol/L High 3.5-5.2 27 Chloride 96 Electrolytes <SEE NOTE> mmol/L Low 97-109 28 Carbon Dioxide 29 mmol/L 24-34 Glucose 90 mg/dL 70-105 BUN 12 mg/dL 6-26 Creatinine 0.9 mg/dL 0.5-1.4 Calcium 10.1 mg/dL 8.5-10.2 Total Protein 7.2 g/dL 6.0-8.0 Albumin 4.8 g/dL 3.6-4.9 Globulin 2.4 g/dL 2.0-3.5 A/G Ratio 2.0 Ratio 1.0-2.2 Total Bilirubin 0.7 mg/dL 0.1-1.3 Alkaline Phosphatase 61 U/L 24-140 Alt 19 U/L 3-42 Ast 19 U/L 8-42 Anion Gap 14 mmol/L 6-14 Manasa Egfr >60 >60 29 Non Manasa Egfr >60 >60 30 Laboratory test finding 02/05/2015 [facility] TSH 0.96 uIU/mL 0.35-4.94 CBC With Auto Diff 02/05/2015 [facility] WBC 7.1 K/uL 4.1-11.0 RBC 5.54 M/uL High 4.00-5.40 Hemoglobin 17.3 gm/dL High 12.0-16.0 Hematocrit 50.8 % High 36.0-47.0 MCV 91.8 fL 80.0-97.0 MCH 31.3 pg 27.0-32.0 MCHC 34.0 g/dL 32.0-36.0 RDW 13.9 % 11.5-14.5 PLT Count 209 K/ul 140-400 Neutrophil 72.4 % 35.0-75.0 Lymphocyte 19.8 % 16.0-52.0 Monocyte 5.5 % 2.0-10.0 Eosinophil 1.5 % 0.0-5.0 Basophil 0.8 % 0.0-4.0 Abs Neutrophils 5.2 K/uL 2.1-8.0 Abs Lymphocytes 1.4 K/uL 0.8-5.5 Abmon 0.4 K/uL 0.1-1.0 Abs Eosinophils 0.1 K/uL 0.0-0.5 Abs Basophils 0.1 K/uL 0.0-0.3 Lipid 11/06/2013 [facility] Cholesterol 278 mg/dL High 50-199 31 Triglycerides 132 mg/dL 30-200 HDL 67 mg/dL 35-85 32 Chol/ HDL Ratio 4.1 ratio 3.7-5.6 VLDL 26 mg/dL 2-29 LDL (Calc) 185 mg/dL High 20-99 33 Comprehensive Metabolic (CMP) 11/06/2013 [facility] Sodium 137 mmol/L 134- 142 Potassium 4.8 mmol/L 3.5-5.2 Chloride 98 mmol/L 97-109 Carbon Dioxide 30 mmol/L 24-34 Glucose 73 mg/dL 70-105 BUN 11 mg/dL 6-26 Creatinine 0.9 mg/dL 0.5-1.4 Calcium 9.9 mg/dL 8.5-10.2 Total Protein 7.1 g/dL 6.0-8.0 Albumin 4.7 g/dL 3.6-4.9 Globulin 2.4 g/dL 2.0-3.5 A/G Ratio 2.0 Ratio 1.0-2.2 Total Bilirubin 0.5 mg/dL 0.1-1.3 Alkaline Phosphatase 63 U/L 24-140 Alt 16 U/L 3-42 Ast 19 U/L 8-42 Anion Gap 14 mmol/L 6-14 Manasa Egfr >60 >60 34 Non Manasa Egfr >60 >60 35 Laboratory test finding 11/06/2013 [facility] TSH 0.88 uIU/mL 0.34-5.60 Laboratory test finding 11/06/2013 [facility] Pap SEE NOTE 36 Comprehensive Metabolic 09/23/2012 [facility] Sodium 137 mmol/L 134-142 37 (CMP) Potassium 4.6 mmol/L 3.5-5.2 Chloride 102 mmol/L 97-109 Carbon Dioxide 30 mmol/L 24-34 Glucose 89 mg/dL 70-105 BUN 16 mg/dL 6-26 Creatinine 0.9 mg/dL 0.5-1.4 Calcium 9.8 mg/dL 8.5-10.2 Total Protein 6.9 g/dL 6.0-8.0 Albumin 4.4 g/dL 3.6-4.9 Globulin 2.5 g/dL 2.0-3.5 A/G Ratio 1.8 Ratio 1.0-2.2 Total Bilirubin 0.4 mg/dL 0.1-1.3 Alkaline Phosphatase 65 U/L 24-140 Alt 16 U/L 3-42 Ast 20 U/L 8-42 Anion Gap 10 mmol/L 6-14 Manasa Egfr >60 >60 38 Non Manasa Egfr >60 >60 39 CBC With Auto Diff 09/23/2012 [facility] WBC 7.9 K/uL 4.1-11.0 RBC 5.06 M/uL 4.00-5.40 Hemoglobin 15.5 gm/dL 12.0-16.0 Hematocrit 46.8 % 36.0-47.0 MCV 92.6 fL 80.0-97.0 MCH 30.6 pg 27.0-32.0 MCHC 33.1 g/dL 32.0-36.0 RDW 13.9 % 11.5-14.5 PLT Count 201 K/ul 140-400 Neutrophil 76.4 % High 35.0-75.0 Lymphocyte 16.3 % 16.0-52.0 Monocyte 4.9 % 2.0-10.0 Eosinophil 1.7 % 0.0-5.0 Basophil 0.7 % 0.0-4.0 Abs Neutrophils 6.0 K/uL 2.1-8.0 Abs Lymphocytes 1.3 K/uL 0.8-5.5 Abs Monocytes 0.4 K/uL 0.1-1.0 Abs Eosinophils 0.1 K/uL 0.0-0.5 Abs Basophils 0.1 K/uL 0.0-0.3 Lipid 09/23/2012 [facility] Cholesterol 230 mg/dL High 50-199 Triglycerides 74 mg/dL 30-200 HDL 71 mg/dL 35-85 40 Chol/ HDL Ratio 3.2 ratio Low 3.7-5.6 VLDL 15 mg/dL 2-29 LDL (Calc) 144 mg/dL High 20-129 41 Laboratory test finding 09/23/2012 [facility] TSH 0.92 uIU/mL 0.34-5.60 FSH 121.0 mIU/ml 42 LH 58.3 mIU/ml 43 Laboratory test finding 09/23/2012 [facility] Estradiol <20 pg/mL 44 Laboratory test finding 01/31/2012 [facility] FSH 119.5 mIU/ml 45, 46 LH 64.2 mIU/ml 47 Prolactin 8.6 ng/ml 48 TSH 0.75 uIU/mL 0.34-5.60 Free T4 0.95 ng/dL 0.50-1.60 Laboratory test finding 01/31/2012 [facility] Pap SEE NOTE 49 Laboratory test finding 09/22/2011 [facility] TSH 0.84 uIU/mL 0.34-5.60 50 CBC With Auto Diff 09/22/2011 [facility] WBC 7.0 K/uL 4.1-11.0 RBC 5.21 M/uL 4.00-5.40 Hemoglobin 16.7 gm/dL High 12.0-16.0 51 Hematocrit 48.6 % High 36.0-47.0 MCV 93.2 fL 80.0-97.0 MCH 32.1 pg High 27.0-32.0 MCHC 34.4 g/dL 32.0-36.0 RDW 14.0 % 11.5-14.5 PLT Count 186 K/ul 140-400 Neutrophil 68.2 % 35.0-75.0 Lymphocyte 21.8 % 16.0-52.0 Monocyte 5.7 % 2.0-10.0 Eosinophil 3.4 % 0.0-5.0 Basophil 0.9 % 0.0-4.0 Abs Neutrophils 4.7 K/uL 2.1-8.0 Abs Lymphocytes 1.5 K/uL 0.8-5.5 Abs Monocytes 0.4 K/uL 0.1-1.0 Abs Eosinophils 0.2 K/uL 0.0-0.5 Abs Basophils 0.1 K/uL 0.0-0.3 Lipid 09/22/2011 [facility] Cholesterol 239 mg/dL High 50-199 Triglycerides 94 mg/dL 30-200 HDL 65 mg/dL 35-85 52 Chol/ HDL Ratio 3.7 ratio 3.7-5.6 VLDL 19 mg/dL 2-29 LDL (Calc) 155 mg/dL High 20-129 53 Comprehensive Metabolic (CMP) 09/22/2011 [facility] Sodium 138 mmol/L 134- 142 Potassium 5.2 mmol/L 3.5-5.2 Chloride 100 mmol/L 97-109 Carbon Dioxide 31 mmol/L 24-34 Glucose 89 mg/dL 70-105 BUN 13 mg/dL 6-26 Creatinine 0.8 mg/dL 0.5-1.4 Calcium 10.2 mg/dL 8.5-10.2 BUN/CR 15 ratio 12-20 Total Protein 7.2 g/dL 6.0-8.0 Albumin 4.7 g/dL 3.6-4.9 Globulin 2.5 g/dL 2.0-3.5 A/G Ratio 1.9 Ratio 1.0-2.2 Total Bilirubin 0.5 mg/dL 0.1-1.3 Alkaline Phosphatase 58 U/L 24-140 Alt 17 U/L 3-42 Ast 22 U/L 8-42 Anion Gap 12 mmol/L 6-14 Manasa Egfr >60 >60 54 Non Manasa Egfr >60 >60 55 CBC With Auto Diff 09/19/2010 [facility] WBC 5.3 K/uL 4.1-11.0 56 RBC 5.17 M/uL 4.00-5.40 Hemoglobin 16.6 gm/dL High 12.0-16.0 Hematocrit 48.9 % High 36.0-47.0 MCV 94.7 fL 80.0-97.0 MCH 32.1 pg High 27.0-32.0 MCHC 33.9 g/dL 32.0-36.0 RDW 14.1 % 11.5-14.5 PLT Count 196 K/ul 140-400 Neutrophil 54.0 % 35.0-75.0 Lymphocyte 33.4 % 16.0-52.0 Monocyte 6.9 % 2.0-10.0 Eosinophil 5.0 % 0.0-5.0 Basophil 0.7 % 0.0-4.0 Abs Neutrophils 2.8 K/uL 2.1-8.0 Abs Lymphocytes 1.8 K/uL 0.8-5.5 Abs Monocytes 0.4 K/uL 0.1-1.0 Abs Eosinophils 0.3 K/uL 0.0-0.5 Abs Basophils 0.0 K/uL 0.0-0.3 Comprehensive Metabolic (CMP) 09/19/2010 [facility] Sodium 143 mmol/L 135- 144 Potassium 4.8 mmol/L 3.6-5.2 Chloride 103 mmol/L 97-110 Carbon Dioxide 30 mmol/L 23-32 Glucose 99 mg/dL 70-105 BUN 12 mg/dL 6-22 Creatinine 1.1 mg/dL 0.5-1.3 Calcium 10.1 mg/dL 8.6-10.2 BUN/CR 11 ratio Low 12-20 Total Protein 6.8 g/dL 5.8-7.8 Albumin 4.4 g/dL 3.5-4.8 Globulin 2.4 g/dL 2.0-3.5 A/G Ratio 1.8 Ratio 1.0-2.2 Total Bilirubin 0.5 mg/dL 0.3-1.2 Alkaline Phosphatase 55 U/L 24-140 Alt 18 U/L 5-45 Ast 24 U/L 12-40 Anion Gap 15 mmol/L 8-16 Non Manasa Egfr 53 Low >60 57 Manasa Egfr >60 >60 58 Lipid 09/19/2010 [facility] Cholesterol 255 mg/dL High 50-199 Triglycerides 132 mg/dL 10-150 HDL 62 mg/dL 35-85 59 Chol/ HDL Ratio 4.1 ratio 3.7-5.6 VLDL 26 mg/dL 2-29 LDL (Calc) 167 mg/dL High 20-129 60 Laboratory test finding 09/19/2010 [facility] Free T4 1.06 ng/dL 0.50-1.60 TSH 1.14 uIU/mL 0.34-5.60 Vit D,25 Hydroxy 27 ng/mL Low 31-100 CMP 08/02/2009 [facility] (Do not Use) Sodium 140 mmol/L 135-144 61 [facility] [place] [address] [phone] Potassium 4.7 mmol/L 3.6-5.2 Chloride 105 mmol/L 97-110 Carbon Dioxide 28 mmol/L 23-32 Glucose 99 mg/dL 70-105 BUN 14 mg/dL 6-22 Creatinine 1.1 mg/dL 0.5-1.3 BUN/CR 13 Ratio Calcium 10.3 mg/dL High 8.6-10.2 62 Total Protein 6.7 g/dL 5.8-7.8 Albumin 4.2 g/dL 3.5-4.8 Globulin 2.5 g/dL 2.0-3.5 A/G Ratio 1.7 Ratio 1.0-2.2 Total Bilirubin 0.6 mg/dL 0.3-1.2 Alkaline Phosphatase 53 U/L 24-140 Alt 18 U/L 5-45 Ast 21 U/L 12-40 Anion Gap 12 mmol/L 8-16 GFR Calculation 57 mL/min Low 60-175 63 GFR For > 60 mL/min 60-175 64 CBC With Auto Diff 08/02/2009 [facility] (Do not Use) WBC 6.1 K/ul 4.0- 10.9 [facility] [place] [address] [phone] RBC 5.34 M/ul 4.20-5.40 Hemoglobin 16.8 GM/dl High 12.5-16.0 Hematocrit 49.9 % High 36.0-47.0 MCV 93.5 FL 80.0-97.0 MCH 31.5 pg High 27.0-31.0 MCHC 33.7 g/dL 32.0-36.0 RDW 14.2 % 11.5-14.5 Platelet Count 191 K/ul 140-440 Neutrophils 51.7 % 50-70 Lymphocytes 37.3 % 20-44 Monocytes 5.3 % 2-9 Eosinophil 5.1 % High 0-4 Basophil 0.6 % 0-2 Absolute Neutrophils 3.2 K/ul 2.05-7.63 Absolute Lymphocytes 2.3 K/ul 0.8-4.8 Absolute Monocytes 0.3 K/ul 0.1-1.0 Absolute Eosinophils 0.3 K/ul 0.1-0.5 Absolute Basophils 0.0 K/ul 0.0-0.3 Hematology Comment (Comm2) N/A Lipid Panel 08/02/2009 [facility] (Do not Use) Cholesterol 267 mg/dL High 50-199 [facility] [place] [address] [phone] Triglycerides 145 mg/dL 10-150 HDL 71 mg/dL 35-85 65 Chol/HDL Ratio 3.8 Ratio 3.7-5.6 66 VLDL 29 mg/dL 2-29 LDL (Calc) 167 mg/dL High 20-129 67 Laboratory test 08/02/2009 [facility] (Do not Use) Free T4 0.83 ng/dL 0.50-1.60 finding [facility] [place] [address] [phone] TSH 0.83 uIU/ml 0.34-5.60 Laboratory test 10/07/2008 [facility] (Do not Use) [facility] Pap - (SEE NOTE) 68 finding [facility] [place] [address] [phone] CMP 07/24/2008 [facility] (Do not Use) Sodium 142 mmol/L 135-14 69 [facility] [address] [place] [phone] Potassium 5.0 mmol/L 3.6-5.2 Chloride 105 mmol/L 97-110 Carbon Dioxide 31 mmol/L 23-33 Glucose 91 mg/dL 70-105 BUN 11 mg/dL 6-22 Creatinine 0.9 mg/dL 0.5-1.3 BUN/CR 12 Ratio 12.0-20.0 Calcium 10.1 mg/dL 8.6-10.2 Total Protein 6.5 g/dL 5.8-7.8 Albumin 4.2 g/dL 3.5-4.8 Globulin 2.3 g/dL 2.0-3.5 A/G Ratio 1.8 Ratio 1.0-2.2 Total Bilirubin 0.5 mg/dL 0.3-1.2 Alkaline Phosphatase 54 U/L 24-140 Alt 16 U/L 4-45 Ast 21 U/L 12-40 Anion Gap 11 mmol/L 8-16 GFR Calculation > 60 mL/min 70 GFR For > 60 mL/min 71 CBC With Auto Diff 07/24/2008 [facility] (Do not Use) WBC 5.8 K/ul 4.0- 10.9 [facility] [place] [address] [phone] RBC 5.19 M/ul 4.20-5.40 Hemoglobin 16.0 GM/dl 12.5-16.0 Hematocrit 47.6 % High 36.0-47.0 MCV 91.6 FL 80.0-97.0 MCH 30.8 pg 27.0-31.0 MCHC 33.6 g/dL 32.0-36.0 RDW 14.0 % 11.5-14.5 Platelet Count 209 K/ul 140-440 Neutrophils 57.4 % 50-70 Lymphocytes 33.9 % 20-44 Monocytes 5.7 % 2-9 Eosinophil 2.2 % 0-4 Basophil 0.8 % 0-2 Absolute Neutrophils 3.3 K/ul 2.05-7.63 Absolute Lymphocytes 2.0 K/ul 0.8-4.8 Absolute Monocytes 0.3 K/ul 0.1-1.0 Absolute Eosinophils 0.1 K/ul 0.1-0.5 Absolute Basophils 0.0 K/ul 0.0-0.3 Hematology Comment (Comm2) N/A Laboratory test 07/24/2008 [facility] (Do not Use) Free T4 0.88 ng/dL 0.50-1.60 finding [facility] [place] [address] [phone] TSH 0.88 uIU/ml 0.34-5.60 Lipid Panel 07/24/2008 [facility] (Do not Use) Cholesterol 230 mg/dL High 50-199 [facility] [place] [address] [phone] Triglycerides 122 mg/dL 10-150 HDL 63 mg/dL 35-85 72 Chol/HDL Ratio 3.7 Ratio 73 VLDL 24 mg/dL LDL (Calc) 143 mg/dL High 20-129 74 1 Updated reference range on new analyzer 2 Updated reference range on new analyzer 3 Concerning GFR Guidelines for Americans: Normal function or mild renal disease, if clinically at risk: >/=60 mL/min Moderately decreased: 30-59 Severely decreased: 15-29 Renal failure: <15 4 Concerning GFR Guidelines: Normal function or mild renal disease, if clinically at risk: >/=60 mL/min Moderately decreased: 30-59 Severely decreased: 15-29 Renal failure: <15 Glomerular Filtration Rate (GFR) is estimated based on the MDRD equation, which assumes a steady state for creatinine as recommended by the National Kidney Disease Education Program in conjunction with the National Institutes of Health and the National Kidney Foundation. Clinical conditions in which it may be necessary to measure GFR by using clearance methods include extremes of age and body size, severe malnutrition or obesity, diseases of skeletal muscle, paraplegia or quadriplegia, vegetarian diet, rapidly changing kidney function, and calculation of the dose of potentially toxic drugs that are excreted by the kidneys. 5 Updated Reference Range -2017 6 Per NCEP ATP III Guidelines: Results lower than 40 mg/dL are suggestive of increased risk for coronary artery disease. Results > or=to 60 mg/dL are considered a negative risk factor. 7 Per NCEP ATP III Guidelines: Normal Population <130 Patients with medical conditions: CHD/DM Optimal: <100 Borderline high: 130-159 High: 160-189 Very high: >189 8 S/CO Ratio >/=1.0 is REACTIVE. S/CO <5.0 is Low Reactive. S/CO >/= 5.0 is High Reactive. Effective Jan 19, 2017 all anti-HCV reactive samples are sent for quantitative PCR confirmation. 9 A Negative serologic test for Lyme Disease indicates no serologic evidence of infection with B burgdorferi at the time this specimen was collected. A repeat specimen should be collected in 2 to 4 weeks if clinically indicated. Unless otherwise specified, testing performed by [facility] [place] [address] 10 A Negative serologic test for Lyme Disease indicates no serologic evidence of infection with B burgdorferi at the time this specimen was collected. A repeat specimen should be collected in 2 to 4 weeks if clinically indicated. Unless otherwise specified, testing performed by [facility] [place] [address] 11 Per NCEP ATP III Guidelines: Results lower than 40 mg/dL are suggestive of increased risk for coronary artery disease. Results > or=to 60 mg/dL are considered a negative risk factor. 12 Per NCEP ATP III Guidelines: Normal Population <130 Patients with medical conditions: CHD/DM Optimal: <100 Borderline high: 130-159 High: 160-189 Very high: >189 13 5.3 No visible hemolysis. 14 Concerning GFR Guidelines for Americans: Normal function or mild renal disease, if clinically at risk: >/=60 mL/min Moderately decreased: 30-59 Severely decreased: 15-29 Renal failure: <15 15 Concerning GFR Guidelines: Normal function or mild renal disease, if clinically at risk: >/=60 mL/min Moderately decreased: 30-59 Severely decreased: 15-29 Renal failure: <15 Glomerular Filtration Rate (GFR) is estimated based on the MDRD equation, which assumes a steady state for creatinine as recommended by the National Kidney Disease Education Program in conjunction with the National Institutes of Health and the National Kidney Foundation. Clinical conditions in which it may be necessary to measure GFR by using clearance methods include extremes of age and body size, severe malnutrition or obesity, diseases of skeletal muscle, paraplegia or quadriplegia, vegetarian diet, rapidly changing kidney function, and calculation of the dose of potentially toxic drugs that are excreted by the kidneys. 16 Concerning GFR Guidelines for Americans: Normal function or mild renal disease, if clinically at risk: >/=60 mL/min Moderately decreased: 30-59 Severely decreased: 15-29 Renal failure: <15 17 Concerning GFR Guidelines: Normal function or mild renal disease, if clinically at risk: >/=60 mL/min Moderately decreased: 30-59 Severely decreased: 15-29 Renal failure: <15 Glomerular Filtration Rate (GFR) is estimated based on the MDRD equation, which assumes a steady state for creatinine as recommended by the National Kidney Disease Education Program in conjunction with the National Institutes of Health and the National Kidney Foundation. Clinical conditions in which it may be necessary to measure GFR by using clearance methods include extremes of age and body size, severe malnutrition or obesity, diseases of skeletal muscle, paraplegia or quadriplegia, vegetarian diet, rapidly changing kidney function, and calculation of the dose of potentially toxic drugs that are excreted by the kidneys. 18 95 Consistent with previous result(s). 19 Concerning GFR Guidelines for Americans: Normal function or mild renal disease, if clinically at risk: >/=60 mL/min Moderately decreased: 30-59 Severely decreased: 15-29 Renal failure: <15 20 Concerning GFR Guidelines: Normal function or mild renal disease, if clinically at risk: >/=60 mL/min Moderately decreased: 30-59 Severely decreased: 15-29 Renal failure: <15 Glomerular Filtration Rate (GFR) is estimated based on the MDRD equation, which assumes a steady state for creatinine as recommended by the National Kidney Disease Education Program in conjunction with the National Institutes of Health and the National Kidney Foundation. Clinical conditions in which it may be necessary to measure GFR by using clearance methods include extremes of age and body size, severe malnutrition or obesity, diseases of skeletal muscle, paraplegia or quadriplegia, vegetarian diet, rapidly changing kidney function, and calculation of the dose of potentially toxic drugs that are excreted by the kidneys. 21 INTERPRETATION OF RESULTS: < 20 UNITS NEGATIVE 20-30 UNITS WEAK POSITIVE > 30 UNITS MODERATE TO STRONG POSITIVE The following result was obtained with the [employer] QUANTA Lite Gliadin IgA II. Results obtained with other manufacturers' assay methods may not be used interchangeably. The magnitude of the reported IgA level cannot be correlated to an endpoint titer. 22 INTERPRETATION OF RESULTS: < 20 UNITS NEGATIVE 20-30 UNITS WEAK POSITIVE > 30 UNITS MODERATE TO STRONG POSITIVE The following result was obtained with the INOVA QUANTA Lite Gliadin IgG II. Results obtained with other manufacturers' assay methods may not be used interchangeably. The magnitude of the reported IgG levels cannot be correlated to an endpoint titer. 23 INTERPRETATION OF RESULTS: < 20 UNITS NEGATIVE 20-30 UNITS WEAK POSITIVE > 30 UNITS MODERATE TO STRONG POSITIVE The following result was obtained with the INOVA QUANTA Lite h-tTG IgA LIBBY. Results obtained with other manufacturers' assay methods may not be used interchangeably. The magnitude of the reported IgA level cannot be correlated to an endpoint titer. Performed at [address] [place] [address] 24 INTERPRETATION OF RESULTS: < 20 UNITS NEGATIVE 20-30 UNITS WEAK POSITIVE > 30 UNITS MODERATE TO STRONG POSITIVE The following result was obtained with the INOVA QUANTA Lite h-tTG IgG LIBBY. Results obtained with other manufacturers' assay methods may not be used interchangeably. The magnitude of the reported IgG levels cannot be correlated to an endpoint titer. Performed at [address] [place] [address] Unless otherwise specified, testing performed by [facility] [address] [address] 25 Per NCEP ATP III Guidelines: Results lower than 40 mg/dL are suggestive of increased risk for coronary artery disease. Results > or=to 60 mg/dL are considered a negative risk factor. 26 Per NCEP ATP III Guidelines: Normal Population <130 Patients with medical conditions: CHD/DM Optimal: <100 Borderline high: 130-159 High: 160-189 Very high: >189 27 5.4 No visible hemolysis. 28 96 Electrolytes confirmed by repeat. 29 Concerning GFR Guidelines for Americans: Normal function or mild renal disease, if clinically at risk: >/=60 mL/min Moderately decreased: 30-59 Severely decreased: 15-29 Renal failure: <15 30 Concerning GFR Guidelines: Normal function or mild renal disease, if clinically at risk: >/=60 mL/min Moderately decreased: 30-59 Severely decreased: 15-29 Renal failure: <15 Glomerular Filtration Rate (GFR) is estimated based on the MDRD equation, which assumes a steady state for creatinine as recommended by the National Kidney Disease Education Program in conjunction with the National Institutes of Health and the National Kidney Foundation. Clinical conditions in which it may be necessary to measure GFR by using clearance methods include extremes of age and body size, severe malnutrition or obesity, diseases of skeletal muscle, paraplegia or quadriplegia, vegetarian diet, rapidly changing kidney function, and calculation of the dose of potentially toxic drugs that are excreted by the kidneys. 31 Fastin hours 32 Per NCEP ATP III Guidelines: Results lower than 40 mg/dL are suggestive of increased risk for coronary artery disease. Results > or=to 60 mg/dL are considered a negative risk factor. 33 Per NCEP ATP III Guidelines: Normal Population <130 Patients with medical conditions: CHD/DM Optimal: <100 Borderline high: 130-159 High: 160-189 Very high: >189 34 Concerning GFR Guidelines for Americans: Normal function or mild renal disease, if clinically at risk: >/=60 mL/min Moderately decreased: 30-59 Severely decreased: 15-29 Renal failure: <15 35 Concerning GFR Guidelines: Normal function or mild renal disease, if clinically at risk: >/=60 mL/min Moderately decreased: 30-59 Severely decreased: 15-29 Renal failure: <15 Glomerular Filtration Rate (GFR) is estimated based on the MDRD equation, which assumes a steady state for creatinine as recommended by the National Kidney Disease Education Program in conjunction with the National Institutes of Health and the National Kidney Foundation. Clinical conditions in which it may be necessary to measure GFR by using clearance methods include extremes of age and body size, severe malnutrition or obesity, diseases of skeletal muscle, paraplegia or quadriplegia, vegetarian diet, rapidly changing kidney function, and calculation of the dose of potentially toxic drugs that are excreted by the kidneys. 36 [facility], [facility]. [address] [place] [address] GYNECOLOGIC CYTOLOGY REPORT Accession Number: [id number] Source of Specimen(s): A: SurePath Vaginal Pap Smear - One Vial Clinical Diagnosis and History: Date of Last Menstrual Period: 2001 Menstrual History: Post-menopausal Treatment History: Hysterectomy Other Clinical Conditions: Last Pap Smear: 2011 normal REFLEX TO HPV ASSAY IF RESULTS OF THIS PAP ARE ASCUS Specimen Adequacy Satisfactory for evaluation General Categorization Negative for intraepithelial lesion or malignancy Interpretation NEGATIVE FOR INTRAEPITHELIAL LESION OR MALIGNANCY Reported: 11/10/2013 Electronically Signed Out By Silvia RAMSEY(ASC) [facility] dss Unless otherwise specified, testing performed by [facility] [address] [place] [id number] 37 This sample is drawn by:BRAULIO 38 Concerning GFR Guidelines for Americans: Normal function or mild renal disease, if clinically at risk: >/=60 mL/min Moderately decreased: 30-59 Severely decreased: 15-29 Renal failure: <15 39 Concerning GFR Guidelines: Normal function or mild renal disease, if clinically at risk: >/=60 mL/min Moderately decreased: 30-59 Severely decreased: 15-29 Renal failure: <15 Glomerular Filtration Rate (GFR) is estimated based on the MDRD equation, which assumes a steady state for creatinine as recommended by the National Kidney Disease Education Program in conjunction with the National Institutes of Health and the National Kidney Foundation. Clinical conditions in which it may be necessary to measure GFR by using clearance methods include extremes of age and body size, severe malnutrition or obesity, diseases of skeletal muscle, paraplegia or quadriplegia, vegetarian diet, rapidly changing kidney function, and calculation of the dose of potentially toxic drugs that are excreted by the kidneys. 40 Per NCEP ATP III Guidelines: Results lower than 40 mg/dL are suggestive of increased risk for coronary artery disease. Results > or=to 60 mg/dL are considered a negative risk factor. 41 Per NCEP ATP III Guidelines: Optimal: <100 Near optimal: 100-129 Borderline high: 130-159 High: 160-189 Very high: >189 42 FSH Female Normal Values: Mid-Follicular: 3.9-8.8 mIU/mL Mid-cycle Peak: 4.5-22.5 mIU/mL Mid-Luteal: 1.8-5.1 mIU/mL Post-menopausal:16.7-113.6 mIU/mL 43 [employer] Hormone Female Normal Values: Mid-Follicular: 2.1-10.9 mIU/mL Mid-cycle Peak: 19.2-103.0 mIU/mL Mid-Luteal: 1.2-12.9 mIU/mL Post-menopausal:10.9-58.6 mIU/mL 44 PLEASE NOTE: THE ESTRADIOL ASSAY HAS BEEN STANDARDIZED TO THE INTERNATIONAL REFERENCE METHOD, ISOTOPE DILUTION:GAS CHROMATOGRAPHY MASS SPECTROMETRY (ID:GCMS). ESTRADIOL REFERENCE RANGE: MALE <47 PG/ML MENSTRUATING FEMALES FOLLICULAR PHASE 27-122 PG/ML MIDCYCLE 95-433 PG/ML LUTEAL PHASE 49-291 PG/ML POSTMENOPAUSAL <40 PG/ML Unless otherwise specified, testing performed by [employer] [facility] [place] [address] 45 This sample is drawn by:OLGA 46 FSH Female Normal Values: Mid-Follicular: 3.9-8.8 mIU/mL Mid-cycle Peak: 4.5-22.5 mIU/mL Mid-Luteal: 1.8-5.1 mIU/mL Post-menopausal:16.7-113.6 mIU/mL 47 Lutenizing Hormone Female Normal Values: Mid-Follicular: 2.1-10.9 mIU/mL Mid-cycle Peak: 19.2-103.0 mIU/mL Mid-Luteal: 1.2-12.9 mIU/mL Post-menopausal:10.9-58.6 mIU/mL 48 Prolactin Female Normal Values: Pre-menopausal: 3.3-26.7 ng/mL Post-menopausal:2.7-19.6 ng/mL 49 [employer] [facility] [place] [address] GYNECOLOGIC CYTOLOGY REPORT Accession Number: [id number] Source of Specimen(s): A: SurePath Vaginal Pap Smear - One Vial Clinical Diagnosis and History: Date of Last Menstrual Period: 2002 Menstrual History: Post-menopausal Treatment History: Hysterectomy Other Clinical Conditions: Last Pap Smear: 2008 normal Specimen Adequacy Satisfactory for evaluation General Categorization Negative for intraepithelial lesion or malignancy Interpretation NEGATIVE FOR INTRAEPITHELIAL LESION OR MALIGNANCY Reported: 02/02/2012 Electronically Signed Out By Silvia RAMSEY(ASCP) [facility] maribel Unless otherwise specified, testing performed by [employer] [facility] [employer] [place] [address] 50 This sample is drawn by:CT 51 Consistent with previous result(s). 52 Per NCEP ATP III Guidelines: Results lower than 40 mg/dL are suggestive of increased risk for coronary artery disease. Results > or=to 60 mg/dL are considered a negative risk factor. 53 Per NCEP ATP III Guidelines: Optimal: <100 Near optimal: 100-129 Borderline high: 130-159 High: 160-189 Very high: >189 54 Concerning GFR Guidelines for Americans: Normal function or mild renal disease, if clinically at risk: >/=60 mL/min Moderately decreased: 30-59 Severely decreased: 15-29 Renal failure: <15 55 Concerning GFR Guidelines: Normal function or mild renal disease, if clinically at risk: >/=60 mL/min Moderately decreased: 30-59 Severely decreased: 15-29 Renal failure: <15 Glomerular Filtration Rate (GFR) is estimated based on the MDRD equation, which assumes a steady state for creatinine as recommended by the National Kidney Disease Education Program in conjunction with the National Institutes of Health and the National Kidney Foundation. Clinical conditions in which it may be necessary to measure GFR by using clearance methods include extremes of age and body size, severe malnutrition or obesity, diseases of skeletal muscle, paraplegia or quadriplegia, vegetarian diet, rapidly changing kidney function, and calculation of the dose of potentially toxic drugs that are excreted by the kidneys. 56 This sample is drawn by:OLGA 57 Concerning GFR Guidelines: Normal function or mild renal disease, if clinically at risk: >/=60 mL/min Moderately decreased: 30-59 Severely decreased: 15-29 Renal failure: <15 Glomerular Filtration Rate (GFR) is estimated based on the MDRD equation, which assumes a steady state for creatinine as recommended by the National Kidney Disease Education Program in conjunction with the National Institutes of Health and the National Kidney Foundation. Clinical conditions in which it may be necessary to measure GFR by using clearance methods include extremes of age and body size, severe malnutrition or obesity, diseases of skeletal muscle, paraplegia or quadriplegia, vegetarian diet, rapidly changing kidney function, and calculation of the dose of potentially toxic drugs that are excreted by the kidneys. 58 Concerning GFR Guidelines for Americans: Normal function or mild renal disease, if clinically at risk: >/=60 mL/min Moderately decreased: 30-59 Severely decreased: 15-29 Renal failure: <15 59 Per NCEP ATP III Guidelines: Results lower than 40 mg/dL are suggestive of increased risk for coronary artery disease. Results > or=to 60 mg/dL are considered a negative risk factor. 60 Per NCEP ATP III Guidelines: Optimal: <100 Near optimal: 100-129 Borderline high: 130-159 High: 160-189 Very high: >189 61 This sample is drawn by:MIGUELITO 62 CONSISTENT WITH PREVIOUS RESULT. 63 Concerning GFR GUIDELINES: Normal Function or Mild Renal Disease, if clinically at risk: >/=60mL/min Moderately decreased: 30-59 Severely decreased: 15-29 Renal Failure: <15 Glomerular Filtration Rate (GFR) is estimated based on the MDRD equation, which assumes a steady state for creatinine as recommended by the National Kidney Disease Education Program in conjunction with the National Institutes of Health and the National Kidney Foundation. Clinical conditions in which it may be necessary to measure GFR by using clearance methods include extremes of age and body size, severe malnutrition or obesity, diseases of skeletal muscle, paraplegia or quadriplegia, vegetarian diet, rapidly changing kidney function, and calculation of the dose of potentially toxic drugs that are excreted by the kidneys. 64 Concerning GFR GUIDELINES: Normal Function or Mild Renal Disease, if clinically at risk: >/=60mL/min Moderately decreased: 30-59 Severely decreased: 15-29 Renal Failure: <15 65 PER NCEP ATP III GUIDELINES: RESULTS LOWER THAN 40 MG/DL ARE SUGGESTIVE OF INCREASED RISK FOR CORONARY ARTERY DISEASE. RESULTS > OR=TO 60 MG/DL ARE CONSIDERED A NEGATIVE RISK FACTOR. 66 INTERPRETATION OF CHOL-HDL RATIO CHD RISK FEMALE MALE VERY HIGH >8.3 >14.3 HIGH 5.6 - 8.3 6.7 - 14.3 AVERAGE 3.7 - 5.6 4.0 - 6.7 BELOW AVERAGE 2.5 - 3.7 2.7 - 4.0 PROTECTED <2.5 <2.7 67 PER NCEP ATP III GUIDELINES: OPTIMAL: <100 NEAR OPTIMAL: 100 - 129 BORDERLINE HIGH: 130 - 159 HIGH: 160 - 189 VERY HIGH: >189 68 [facility], [facility]. [address] [place] [address] GYNECOLOGIC CYTOLOGY REPORT Accession Number: [id number] Source of Specimen(s): A: SurePath Pap Smear (NOS) - One Vial Clinical Diagnosis and History: Date of Last Menstrual Period: None Provided Specimen Adequacy Satisfactory for evaluation Absence of endocervical/transformation zone component General Categorization Negative for intraepithelial lesion or malignancy Interpretation NEGATIVE FOR INTRAEPITHELIAL LESION OR MALIGNANCY Reported: 10/09/2008 Electronically Signed Out By Silvia RAMSEY([facility]) [facility] dss ICD9 Code: V72.31 Unless otherwise specified, testing performed by [facility] [address] [place] [id number] 69 This sample is drawn by:CT 70 Concerning GFR GUIDELINES: Normal Function or Mild Renal Disease, if clinically at risk: >/=60mL/min Moderately decreased: 30-59 Severely decreased: 15-29 Renal Failure: <15 Glomerular Filtration Rate (GFR) is estimated based on the MDRD equation, which assumes a steady state for creatinine as recommended by the National Kidney Disease Education Program in conjunction with the National Institutes of Health and the National Kidney Foundation. Clinical conditions in which it may be necessary to measure GFR by using clearance methods include extremes of age and body size, severe malnutrition or obesity, diseases of skeletal muscle, paraplegia or quadriplegia, vegetarian diet, rapidly changing kidney function, and calculation of the dose of potentially toxic drugs that are excreted by the kidneys. 71 Concerning GFR GUIDELINES: Normal Function or Mild Renal Disease, if clinically at risk: >/=60mL/min Moderately decreased: 30-59 Severely decreased: 15-29 Renal Failure: <15 72 PER NCEP ATP III GUIDELINES: RESULTS LOWER THAN 40 MG/DL ARE SUGGESTIVE OF INCREASED RISK FOR CORONARY ARTERY DISEASE. RESULTS > OR=TO 60 MG/DL ARE CONSIDERED A NEGATIVE RISK FACTOR. 73 INTERPRETATION OF CHOL-HDL RATIO CHD RISK FEMALE MALE VERY HIGH >8.3 >14.3 HIGH 5.6 - 8.3 6.7 - 14.3 AVERAGE 3.7 - 5.6 4.0 - 6.7 BELOW AVERAGE 2.5 - 3.7 2.7 - 4.0 PROTECTED <2.5 <2.7 74 PER NCEP ATP III GUIDELINES: OPTIMAL: <100 NEAR OPTIMAL: 100 - 129 BORDERLINE HIGH: 130 - 159 HIGH: 160 - 189 VERY HIGH: >189 Procedures Date Code Description Status 11/08/2017 [id number] Mammogram Completed 11/08/2017 [id number] Bone Mineral Density Test Completed 10/11/2017 43356 Electrocardiogram Complete Completed 04/14/2016 [id number] Colonoscopy Completed 09/16/2015 [id number] Bone Mineral Density Test Completed 09/16/2015 [id number] Mammogram Completed 09/02/2014 [id number] Mammogram Completed 11/24/2013 [id number] Mammogram Completed 11/06/2013 [id number] Electrocardiogram Complete Completed 05/06/2012 [id number] Bone Mineral Density Test Completed 01/31/2012 86729 Electrocardiogram Complete Completed 01/10/2012 [id number] Remove Impacted Cerumen Requiring Instrumentation Completed 07/05/2011 [id number] Mammogram Completed 12/06/2009 [id number] Mammogram Completed 08/02/2009 23184 Electrocardiogram Complete Completed 01/07/2009 80894 Admin Of Inj (Therapeutic Phrophylactic Or Diagnostic Completed Subq Inj 11/04/2008 [id number] Mammogram Completed 07/24/2008 04222 Electrocardiogram Complete Completed Encounters Type Date Location Provider Dx Diagnosis Office Visit 09/12/2018 Betty Morgan, F33.0 Major depressive 9:20a RN [employer] disorder, recurrent, mild R05 Cough J06.9 Acute upper respiratory infection, unspecified F41.1 Generalized anxiety disorder J20.9 Acute bronchitis, unspecified Z68.27 Body mass index (BMI) 27.0-27.9, adult Office Visit 08/13/2018 9:40a Dipesh Max PA J01.90 Acute sinusitis, unspecified Z68.27 Body mass index (BMI) 27.0-27.9, adult R05 Cough R51 Headache Office Visit 07/12/2018 8:00a Betty Morgan, M54.6 Pain in thoracic RN [employer] spine Z23 Encounter for immunization Z68.27 Body mass index (BMI) 27.0-27.9, adult Office Visit 04/26/2018 8:00a Betty Morgan, F41.1 Generalized anxiety RN [employer] disorder I10 Essential (primary) hypertension E78.2 Mixed hyperlipidemia Z23 Encounter for immunization Z68.27 Body mass index (BMI) 27.0-27.9, adult Office Visit 03/13/2018 8:00a Betty Morgan, RN [employer] R05 Cough E78.2 Mixed hyperlipidemia Z68.26 Body mass index (BMI) 26.0-26.9, adult Office Visit 01/16/2018 8:00a Betty Morgan, F41.1 Generalized anxiety RN [employer] disorder E78.2 Mixed hyperlipidemia I10 Essential (primary) hypertension B35.3 Tinea pedis R53.83 Other fatigue Z68.27 Body mass index (BMI) 27.0-27.9, adult Office Visit 12/24/2017 3:20p Dipesh Max PA G24.3 Spasmodic torticollis Office Visit 10/11/2017 10:20a Betty Morgan, Z00.00 Encntr for general RN [employer] adult medical exam w/o abnormal findings F41.1 Generalized anxiety disorder Z12.31 Encntr screen mammogram for malignant neoplasm of breast Z13.820 Encounter for screening for osteoporosis E55.9 Vitamin D deficiency, unspecified Z68.27 Body mass index (BMI) 27.0-27.9, adult Office Visit 08/29/2017 10:00a Betty Morgan, RN R42 Dizziness and [employer] giddiness F41.1 Generalized anxiety disorder M54.2 Cervicalgia Office Visit 06/22/2017 8:40a Betty Morgan, J06.9 Acute upper RN [employer] respiratory infection, unspecified R05 Cough F33.0 Major depressive disorder, recurrent, mild R35.0 Frequency of micturition Office Visit 05/11/2017 8:20a Betty Morgan, J06.9 Acute upper RN [employer] respiratory infection, unspecified Office Visit 04/26/2017 1:20p Betty Morgan, 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 abn findings F41.1 Generalized anxiety disorder S30.861D Insect bite (nonvenomous) of abdominal wall, subs encntr Z23 Encounter for immunization Z11.59 Encounter for screening for other viral diseases R31.9 Hematuria, unspecified Z12.11 Encounter for screening for malignant neoplasm of colon Office Visit 02/28/2017 2:20p Betty Morgan S30.861A Insect bite C, RN [employer] (nonvenomous) of abdominal wall, init encntr F41.1 Generalized anxiety disorder S30.861A Insect bite (nonvenomous) of abdominal wall, init encntr F41.1 Generalized anxiety disorder Office Visit 01/25/2017 1:00p Betty Morgan, F41.1 Generalized anxiety RN [employer] disorder F43.11 Post-traumatic stress disorder, acute Office Visit 11/30/2016 11:40a Betty Morgan, M25.532 Pain in LEFT wrist RN [employer] Office Visit 11/01/2016 8:20a Betty Morgan, F41.1 Generalized anxiety RN [employer] disorder F43.11 Post-traumatic stress disorder, acute Office Visit 10/19/2016 10:20a Francie Vázquez PA J10.89 Influenza due to oth ident influenza virus w oth manifest J01.00 Acute maxillary sinusitis, unspecified F17.210 Nicotine dependence, cigarettes, uncomplicated J10.89 Influenza due to oth ident influenza virus w oth manifest J01.00 Acute maxillary sinusitis, unspecified F17.210 Nicotine dependence, cigarettes, uncomplicated Office Visit 10/16/2016 1:45p Kate Chacko J01.00 Acute maxillary MD Gaye sinusitis, unspecified F41.0 Panic disorder without agoraphobia Office Visit 07/13/2016 8:00a Betty Morgan, F41.1 Generalized anxiety RN [employer] disorder F33.0 Major depressive disorder, recurrent, mild F43.11 Post-traumatic stress disorder, acute E78.2 Mixed hyperlipidemia E55.9 Vitamin D deficiency, unspecified Office Visit 06/22/2016 9:00a Betty Morgan, N64.4 Mastodynia RN [employer] Office Visit 04/14/2016 10:20a Betty Morgan, Z00.00 Encntr for general RN [employer] adult medical exam w/o abnormal findings N64.4 Mastodynia B35.3 Tinea pedis Office Visit 03/01/2016 1:20p Betty Morgan, F41.1 Generalized anxiety RN [employer] disorder F33.0 Major depressive disorder, recurrent, mild F43.11 Post-traumatic stress disorder, acute M54.2 Cervicalgia F17.210 Nicotine dependence, cigarettes, uncomplicated Office Visit 12/10/2015 9:40a Betty Morgan, F41.1 Generalized anxiety RN [employer] disorder F33.0 Major depressive disorder, recurrent, mild F43.11 Post-traumatic stress disorder, acute M54.2 Cervicalgia R42 Dizziness and giddiness Office Visit 11/25/2015 1:20p Betty Morgan, M54.2 Cervicalgia RN [employer] Office Visit 06/30/2015 1:00p Betty Morgan, F41.1 Generalized anxiety RN [employer] disorder F41.1 Generalized anxiety disorder M54.2 Cervicalgia M54.2 Cervicalgia Office Visit 05/07/2015 9:40a Betty Morgan, F41.1 Generalized anxiety RN [employer] disorder F43.11 Post-traumatic stress disorder, acute R19.7 Diarrhea, unspecified H81.11 Benign paroxysmal vertigo, RIGHT ear Office Visit 04/08/2015 9:40a Betty Morgan, F41.1 Generalized anxiety RN [employer] disorder R19.7 Diarrhea, unspecified Office Visit 03/03/2015 3:30p Betty Morgan, J20.9 Acute bronchitis, RN [employer] unspecified H81.311 Aural vertigo, RIGHT ear Office Visit 01/21/2015 1:00p Betty Morgan, V70.0 Exam (Adult ) General RN [employer] Medical Routine AT Health Care Facility V70.0 Exam (Adult) General Medical Routine AT Health Care Facility 300.00 Anxiety State Unspec 300.00 Anxiety State Unspec 296.31 Depressive Disorder Major Recurrent Mild V17.49 Family HX Of Other Cardiovascular Diseases 296.31 Depressive Disorder Major Recurrent Mild 300.02 Anxiety Disorder Generalized V17.49 Family HX Of Other Cardiovascular Diseases 300.02 Anxiety Disorder Generalized Office Visit 12/18/2014 8:20a Betty Morgan, RN 786.50 Pain Chest Unspec [employer] 726.31 Epicondylitis Medial Office Visit 11/18/2014 1:00p Betty Morgan, RN 786.50 Pain Chest Unspec [employer] 726.31 Epicondylitis Medial 300.00 Anxiety State Unspec 296.31 Depressive Disorder Major Recurrent Mild Office Visit 10/28/2014 3:30p Betty Morgan, 786.50 Pain Chest Unspec RN [employer] Office Visit 10/21/2014 3:30p Betty Morgan, 786.50 Pain Chest Unspec RN [employer] Office Visit 09/30/2014 2:00p Betty Morgan, 466.0 Bronchitis Acute RN [employer] Office Visit 09/09/2014 2:40p Betty Morgan, 477.9 Rhinitis Allergic RN [employer] Cause Unspec 611.9 Breast Disorders Unspec 465.9 URI Upper Respiratory Infections Acute Unspec Sites Office Visit 08/19/2014 1:00p Betty Morgan, 782.1 Rash & Other Nonspec RN [employer] Skin Eruption 465.9 URI Upper Respiratory Infections Acute Unspec Sites Office Visit 06/02/2014 10:15a Kate Chacko MD 466.0 Bronchitis Acute Office Visit 04/15/2014 1:00p Betty Morgan, RN MS 723.1 Cervicalgia [employer] 724.2 Lumbago 333.94 Restless Leg Syndrome 703.0 Ingrowing Nail 719.49 Pain Joint Multiple Sites Office Visit 11/06/2013 9:00a Betty Morgan, 272.2 Hyperlipidemia Mixed RN [employer] V72.31 Routine [employer] Examination 401.1 Hypertension Benign 272.2 Hyperlipidemia Mixed 724.2 Lumbago V76.10 Screening For Malignant Neoplasm Breast V76.51 Special Screening For Malignant Neoplasms Colon Office Visit 03/24/2013 8:00a Jelani Grewal MD 401.1 Hypertension Benign 272.2 Hyperlipidemia Mixed 846.8 Sprains & Strains Sacroiliac Region Other Spec Sites Office Visit 10/16/2012 5:30p Jelani Grewal, 724.2 Lumbago MD Office Visit 09/30/2012 10:00a Evette Isbell MD 846.8 Sprains & Strains Sacroiliac Region Other Spec Sites Office Visit 09/23/2012 8:00a Jelani Grewal, 401.1 Hypertension Benign 272.2 Hyperlipidemia Mixed 300.02 Anxiety Disorder Generalized 715.09 Osteoarthrosis Generalized Multiple Sites 627.2 Menopausal Or Female Climacteric State, Symptomatic Office Visit 05/31/2012 9:20a Betty Morgan, V58.32 Encounter For Removal RN [employer] Of Sutures Office Visit 04/03/2012 2:00p Jelani Grewal, 300.02 Anxiety Disorder MD Generalized 401.1 Hypertension Benign 724.5 Backache Unspec 272.2 Hyperlipidemia Mixed 627.2 Menopausal Or Female Climacteric State, Symptomatic Office Visit 01/31/2012 1:00p Betty Morgan, V72.31 Routine [employer] RN [employer] Examination 300.02 Anxiety Disorder Generalized 300.21 Agoraphobia W/ Panic Disorder 627.2 Menopausal Or Female Climacteric State, Symptomatic 785.1 Palpitations 401.1 Hypertension Benign Office Visit 01/10/2012 2:15p Jelani Grewal MD 780.4 Dizziness & Giddiness 388.70 Otalgia & Earache Unspec 401.1 Hypertension Benign 300.00 Anxiety State Unspec 380.4 Impacted Cerumen Office Visit 09/22/2011 8:00a Jelani Grewal MD 401.1 Hypertension Benign 272.2 Hyperlipidemia Mixed 723.1 Cervicalgia 724.5 Backache Unspec 289.0 Polycythemia Secondary Office Visit 06/16/2011 1:45p Jelani Grewal MD 300.00 Anxiety State Unspec 723.1 Cervicalgia Office Visit 03/06/2011 12:00p Jelani Grewal MD 461.8 Sinusitis Acute Other 462 Pharyngitis Acute 401.1 Hypertension Benign Office Visit 12/21/2010 6:00p Jelani Grewal MD 401.1 Hypertension Benign 300.00 Anxiety State Unspec 327.01 Insomnia Due To Medical Condition Classified Elsewhere 272.2 Hyperlipidemia Mixed Office Visit 09/28/2010 6:15p Jelani Grewal MD 401.1 Hypertension Benign 272.0 Hypercholesterolemia Pure 300.00 Anxiety State Unspec 327.01 Insomnia Due To Medical Condition Classified Elsewhere 289.0 Polycythemia Secondary Office Visit 06/08/2010 6:15p Jelani Grewal MD 300.00 Anxiety State Unspec 327.01 Insomnia Due To Medical Condition Classified Elsewhere 726.4 Enthesopathy Of Wrist And Carpus Office Visit 04/28/2010 10:30a Betty Morgan, 465.9 URI Upper Respiratory RN [employer] Infections Acute Unspec Sites Office Visit 04/01/2010 9:00a Fawn Trabout, Jelani, 300.00 Anxiety State Unspec 327.01 Insomnia Due To Medical Condition Classified Elsewhere Office Visit 01/10/2010 1:00p Betty Morgan, 782.1 Rash & Other Nonspec RN [employer] Skin Eruption Office Visit 11/22/2009 11:50a Jelani Grewal, 724.1 Pain Thoracic Spine 723.1 Cervicalgia 300.01 Panic Disorder W/O Agoraphobia 401.1 Hypertension Benign Office Visit 10/08/2009 8:50a Jelani Grewal MD 724.1 Pain Thoracic Spine Office Visit 08/02/2009 2:00p Jelani Grewal MD V70.0 Exam ( Adult) General Medical Routine AT Health Care Facility 723.1 Cervicalgia 305.1 Tobacco Use Disorder 788.41 Urinary Frequency 401.1 Hypertension Benign 272.0 Hypercholesterolemia Pure Office Visit 07/05/2009 11:00a Jelani Grewal, 465.9 URI Upper MD Respiratory Infections Acute Unspec Sites 305.1 Tobacco Use Disorder Office Visit 03/10/2009 8:00a Betty Morgan, 916.4 Injury Superficial RN [employer] Insect Bite Hip Thigh Leg Ankle NV No Inf 780.79 Malaise And Fatigue Other 782.9 Skin & Integumentary Tissue Other Symptoms Office Visit 03/08/2009 2:00p Kate Chacko MD 466.0 Bronchitis Acute Office Visit 03/05/2009 10:15a Trevor Villalpando, N.P. 466.0 Bronchitis Acute 461.0 Sinusitis Acute Maxillary Office Visit 01/07/2009 1:50p Cisco Dewitt, 692.6 Dermatitis Contact Due To Plants (Except Food) Office Visit 12/28/2008 2:30p Kate Chacko 692.6 Dermatitis Contact MD Gaye Due To Plants (Except Food) Office Visit 12/17/2008 11:30a Betty Morgan, 724.2 Lumbago RN [employer] Office Visit 10/07/2008 9:30a Betty Morgan, V72.31 Routine [employer] RN [employer] Examination 272.0 Hypercholesterolemia Pure 401.1 Hypertension Benign 305.1 Tobacco Use Disorder Office Visit 09/15/2008 8:05a Betty Morgan, 789.01 Pain Abdominal RIGHT RN [employer] Upper Quadrant Office Visit 08/12/2008 12:20p Jelani Grewal, 789.01 Pain Abdominal RIGHT MD Upper Quadrant 401.1 Hypertension Benign 305.1 Tobacco Use Disorder Office Visit 07/24/2008 1:30p Jelani Grewal, 789.06 Pain Abdominal MD Epigastric 724.2 Lumbago 305.1 Tobacco Use Disorder 785.1 Palpitations Plan of Treatment Future Appointment(s):10/10/2018 8:20 am - Betty Corona, RN [employer] at [id number]/12/2018 - Betty Corona, RN MS FNPF33.0 Major depressive disorder, recurrent, mildMiscellaneous:INCREASE ZOLOFT DOSE TO 1.5 TABS (75 MG) BY MOUTH DAILY FOR A TRIAL PERIOD. IF YOU DO NOT TOLERATE THIS DOSE RESUME 50MG BY MOUTH DAILY. Advised pt to seek out counseling services at [facility] or to look in the phone book for resources. Also mentioned that [facility] pastors are often counselors.R05 QdvkgX67.9 Acute upper respiratory infection, unspecifiedMiscellaneous:12 hr sudefed, once daily in am. for sinus congestion saline nose spray, use 2 sprays every 3-4 hrs while awake for 1-2 days, then every 6 hours for nasal congestion and sinus pressure call next week if not better, sooner if any worse. HOLD ANTIBIOTIC , but may start antibiotic for any fever or chillsor continued green drainage.F41.1 Generalized anxiety disorderMiscellaneous:Alprazolam is an" as needed "antianxiety pill, it is a controlled drug and can be addicting if taken too often. so just use when really nervous or anxious or to calm down for sleep at night There areseveral things that can increase anxiety, like nicotine, caffine , decongestants, lack of sleep. Sometimes anxiety can be helped by meditation, exersize , adequate sleep.J20.9 Acute bronchitis, unspecifiedNew Medication: Sulfamethoxazole/Trimethoprim DS 800-160 mg - one tab by mouth twice a day for 7 daysMiscellaneous:ADVISED THAT SMOKING CAN CAUSE INCREASED SUSEPTIBILITY FOR BRONCHITIS, DISCUSSED CESSATION METHODS, IE COLD TURKEY, PATCHES OR GUM AND PILLS SUCH CHANTIX AND WELLBUTRIN. Bronchitis is often a viral infection. Will treat symptomatically with rest, fluids, tylenol for aches or pains. May use mucinex to loosen chest secretions. Avoid smoke and fumes. Jey needed if no better or worse.Z68.27 Body mass index (BMI) 27.0-27.9, adult
[2018-10-19 17:29] VITALS: BP 174/85
--- NOTE | 2018-10-19 17:50 | UC ---
Abdominal Pain Female HPI - HPI Summary HPI Summary: Patient is a 58-year-old female who presents to the urgent care with a chief complaint of left flank pain. She reports that she was shopping and suddenly the patient developed the severe pain. The pain comes in waves becomes 10 out of 10 and then diagnosis to about 1 out of 10. The patient has nausea but no vomiting. Denies any constipation she has chronically diarrhea but is not different from her usual. She denies any fever or chills, denies any dysuria, hematuria or urinary frequency. - History of Current Complaint Chief Complaint: UCAbdominalPain Stated Complaint: SIDE PAIN Time Seen by Provider: 10/19/18 17:39 Hx Obtained From: Patient Hx Last Menstrual Period: 11 YEARS Onset/Duration: Sudden Onset Timing: Intermittent Episodes Lasting: Severity Initially: Severe Severity Currently: Mild Pain Intensity: 7 Allergies/Adverse Reactions: Allergies Allergy/AdvReac Type Severity Reaction Status Date / Time latex Allergy Rash Verified 10/19/18 17:29 tramadol AdvReac Severe Nausea And Verified 10/19/18 17:29 Vomiting Home Medications: Home Medications Atenolol/Chlorthalidone [Atenolol/Chlorthalidone 50-25 mg-] 0.5 tab PO DAILY [History Confirmed 10/19/18] Sertraline* [Zoloft*] 50 mg PO BEDTIME 10/19/18 [History Confirmed 10/19/18] PMH/Surg Hx/FS Hx/Imm Hx Cardiovascular History: Hypertension Psychological History: Anxiety - Surgical History Surgical History: Yes Surgery Procedure, Year, and Place: WISDOM TEETH EXTRACTION AGE 18, [facility] [place]. 1992 BILATERAL TUBAL LIGATION, [facility] [place]. 2002 VAGINAL HYSTERECTOMY, [facility] [place]. 2008 LAPAROSCOPIC CHOLECYSTECTOMY, [facility] [place]. 02/2016 FUSION IN NECK - Family History Known Family History: Positive: Non-Contributory - Social History Alcohol Use: None Substance Use Type: None Smoking Status (MU): Heavy Every Day Tobacco Smoker Type: Cigarettes Amount Used/How Often: 1 PPD FOR 35 YEARS Length of Time of Smoking/Using Tobacco: 30 YEARS Have You Smoked in the Last Year: Yes - Immunization History Most Recent Tetanus Shot: Unknown Review of Systems All Other Systems Reviewed And Are Negative: Yes Constitutional: Positive: Negative Skin: Positive: Negative Eyes: Positive: Negative ENT: Positive: Negative Respiratory: Positive: Negative Cardiovascular: Positive: Negative Gastrointestinal: Positive: Other - Right flank pain Genitourinary: Positive: Negative Motor: Positive: Negative Neurovascular: Positive: Negative Musculoskeletal: Positive: Negative Neurological: Positive: Negative Psychological: Positive: Negative Is Patient Immunocompromised?: No Physical Exam - Summary Physical Exam Summary: VITAL SIGNS: Reviewed. GENERAL: Patient is a well developed and nourished female who is lying comfortable in the stretcher. Patient is not in any acute respiratory distress. HEAD AND FACE: No signs of trauma. No ecchymosis, hematomas or skull depressions. No sinus tenderness. EYES: PERRLA, EOMI x 2, No injected conjunctiva, no nystagmus. EARS: Hearing grossly intact. Ear canals and tympanic membranes are within normal limits. MOUTH: Oropharynx within normal limits. NECK: Supple, trachea is midline, no adenopathy, no JVD, no carotid bruit, no c- spine tenderness, neck with full ROM. CHEST: Symmetric, no tenderness at palpation LUNGS: Clear to auscultation bilaterally. No wheezing or crackles. CVS: Regular rate and rhythm, S1 and S2 present, no murmurs or gallops appreciated. ABDOMEN: Soft, Positive right flank pain. No signs of distention. No rebound no guarding, and no masses palpated. Bowel sounds are normal. EXTREMITIES: FROM in all major joints, no edema, no cyanosis or clubbing. NEURO: Alert and oriented x 3. No acute neurological deficits. Speech is normal and follows commands. SKIN: Dry and warm Triage Information Reviewed: Yes Appearance: Well-Appearing, No Pain Distress, Well-Nourished Vital Signs: Initial Vital Signs Temp 98.2 F 10/19/18 17:23 Pulse 73 10/19/18 17:23 Resp 16 10/19/18 17:23 BP 174/85 10/19/18 17:23 Pulse Ox 100 10/19/18 17:23 Abd Pain Female Course/Dx - Course Course Of Treatment: In the urgent care course the patients urinalysis is negative for UTI. However in the physical exam the patient has positive right costovertebral angle tenderness and the pain went up to 10/10 for Couple Minutes and resolved. Therefore, I recommended for the patient to go to the emergency department for further workup and management. She declined ambulance transfer. The patients daughter will take to the emergency department. Patient is hemodynamically stable alert and oriented 3. Patient declined Toradol. She just whent to the ED/ - Differential Dx/Diagnosis Provider Diagnosis: Right flank pain Discharge - Sign-Out/Discharge Documenting (check all that apply): Patient Departure All imaging exams completed and their final reports reviewed: No Studies - Discharge Plan Condition: Stable Disposition: HOME-RECOMMEND TO ED Patient Education Materials: Flank Pain (ED) Referrals: Kate Hill MD [Primary Care Provider] - Additional Instructions: Patient will be discharge to the ED for further w/u and management. She declined Ambulance - Billing Disposition and Condition Condition: STABLE Disposition: Home-Recommend to ED
[2018-10-19] MEDS: Ketorolac INJ* 60 MG/2 ML VIAL IM ONE ×2 (17:52→17:56)
== END 2018-10-19 18:00 | disposition home health service (06) ==
LOC: UCEAST 17:19
DX: R10.9 Unspecified abdominal pain (principal); R11.0 Nausea; I10 Essential (primary) hypertension; F41.9 Anxiety disorder, unspecified; F17.210 Nicotine dependence, cigarettes, uncomplicated; Z98.1 Arthrodesis status; Z91.040 Latex allergy status
CPT/HCPCS: 81003; 99212; G0463; J1885

== ENCOUNTER 2018-10-19 18:13 | Emergency (ER) | payer BC ==
[2018-10-19 18:28] VITALS: BP 176/89
== END 2018-10-19 20:24 | disposition left against medical advice (07) ==
LOC: ED 18:13
DX: R10.9 Unspecified abdominal pain (principal); Z53.21 Procedure and treatment not carried out due to patient leaving prior to being seen by health care provider
CPT/HCPCS: 99282